=== PATIENT | female | born 1965 | race Caucasian/White ===

== ENCOUNTER 2019-09-08 14:57 | Inpatient (IN) ==
[2019-09-08 15:38] LABS: Basophils # (auto) 0.03 K/uL (0-0.2); Basophils % (auto) 0.2 %; Eosinophils # (auto) 0.04 K/uL (0-0.5); Eosinophils % (auto) 0.2 %; Hematocrit (blood only) 46.9 % (37-47); Hemoglobin 15.9 g/dL (12.0-16.0); Immature Granulocytes # (auto) 0.05 K/uL (0.00-0.02); Immature Granulocytes % (auto) 0.3 %; Lymphocytes # (auto) 2.19 K/uL (1.2-3.4); Lymphocytes % (auto) 13.4 %; Mean Corpuscular Hemoglobin 29.6 pg (25-34); Mean Corpuscular Hgb Conc 33.9 g/dL (32-36); Mean Corpuscular Volume 87.3 fL (80-100); Mean Platelet Volume 9.2 fL (7.4-10.4); Monocytes # (auto) 0.79 K/uL (0.11-0.59); Monocytes % (auto) 4.8 %; Neutrophils # (auto) 13.21 K/uL (1.4-6.5); Neutrophils % (auto) 81.1 %; Platelet Count 377 K/uL (130-400); RDW Coefficient of Variation 15.4 % (11.5-14.5); RDW Standard Deviation 49.3 fL (36.4-46.3); Red Blood Count 5.37 M/uL (4.2-5.4); White Blood Count 16.31 K/uL (4.8-10.8)
[2019-09-08 15:49] LABS: Partial Thromboplastin Time 26.2 Seconds (21.0-31.0); Prothrombin Time 10.5 Seconds (9.0-12.0)
[2019-09-08 15:55] LABS: Alanine Aminotransferase 17 U/L (12-78); Albumin Level 3.5 gm/dl (3.4-5.0); Aspartate Aminotransferase 10 U/L (15-37); BUN Creatinine Ratio 6.8 (10-20); Blood Urea Nitrogen 6 mg/dl (7-18); Calcium 9.6 mg/dl (8.5-10.1); Carbon Dioxide 21 mmol/L (21-32); Chloride 108 mmol/L (98-107); Creatinine Clr Calc Pharmacy 86.6 ml/min; Est GFR (African American) 85.2; Est GFR (Non-African American) 73.5; Glucose 101 mg/dl (70-99); Potassium 3.7 mmol/L (3.5-5.1); Sodium 137 mmol/L (136-145)
[2019-09-08 15:59] LABS: Albumin Globulin Ratio 0.6 (0.9-2); Alkaline Phosphatase 151 U/L (45-117); Bilirubin,Total 0.2 mg/dl (0.2-1); Globulin 5.4 gm/dl (2.5-4.0); Total Protein 8.9 gm/dl (6.4-8.2); Troponin I < 0.015 ng/ml (0-0.045)
[2019-09-08] MEDS ORDERED: OPTIRAY 320 125ml IV PRN (16:22)
[2019-09-08 16:32] LABS: Magnesium 1.8 mg/dl (1.8-2.4)
--- NOTE | 2019-09-08 16:34 | Emergency Department Note ---
History of Present Illness General Chief complaint: Cardiac Assessment Stated complaint: DIZZY Time Seen by Provider: 09/08/19 16:03 Source: patient Mode of arrival: ambulatory Limitations: no limitations History of Present Illness Provider complaint: Headache and chest pain Onset (ago): year(s) (Intermittent and sporadic for 3 years worsening over the test 2 weeks occurring 3-4 times a day) 3 Location: head (Right side) and chest (Left upper chest and left arm) Radiation: extremity (Left arm) Severity: moderate Pain Consistency: + intermittent Maximum Pain Intensity: 2 Quality: + sharp Relieved By: + other (Meclizine) Exacerbated By: + movement Associated symptoms: + nausea/vomiting, + shortness of breath (Chronic from COPD not worsening) and + other (Numbness to the tongue and lips with double vision); no fever/chills and no weakness Treatments prior to arrival: other (Meclizine) This is a 54-year-old female presents with a headache and chest pain. The patient states that for the past 3 years she has had intermittent and sporadic episodes where she will develop a right-sided headache which will give her double vision and numbness to the tongue and lips. She then developed sharp pain in her left upper chest rating down her left arm. The pain is described as sharp. It is also associated with vertigo and she was prescribed Antivert for the vertigo by her PCP. She has never had any imaging studies of her head. Over the past 2 weeks her symptoms have become more frequent and she has about 3-4 episodes a day. She was seen by her PCP today and sent here for evaluation due to her tachycardia and symptoms. She does have a family history of CAD. Her brother of a heart attack at age 42. She states that her mother had extensive heart problems. She currently smokes although she is trying to quit. She does have COPD and has chronic shortness of breath which has not worsened recently. She denies any leg swelling or pain. She has no history of PE or DVT. She did take a meclizine at 9 AM this morning. She denies any difficulty walking or swallowing. She is does state that when her tongue is numb she feels like she has trouble articulating. She has no trouble finding words or understanding. Home Medications Home Medications Medication Instructions Recorded Confirmed Type Victoza 2-Sonny 0.6 mg SUBCUT QAM 03/21/19 09/08/19 History dicyclomine 20 mg PO QID PRN 03/21/19 09/08/19 History duloxetine [Cymbalta] 60 mg PO QAM 03/21/19 09/08/19 History ezetimibe 10 mg PO QAM 03/21/19 09/08/19 History levothyroxine 75 mcg PO QAM 03/21/19 09/08/19 History magnesium oxide 400 mg PO HS 03/21/19 09/08/19 History metformin 1,000 mg PO BID 03/21/19 09/08/19 History omeprazole 40 mg PO BID 03/21/19 09/08/19 History topiramate 25 mg PO TID 03/21/19 09/08/19 History albuterol sulfate 2 puff INHALATION Q4H PRN 09/08/19 09/08/19 History ammonium lactate 1 applic TOPICAL BID 09/08/19 09/08/19 History glycopyrrolate-formoterol [Bevespi 2 puff INHALATION BID 09/08/19 09/08/19 History Aerosphere] meclizine 25 mg PO TID PRN 09/08/19 09/08/19 History Allergies Allergy/AdvReac Type Severity Reaction Status Date / Time No Known Allergies Allergy Unknown Verified 07/01/19 15:34 Past Med/Surg History Medical History Anxiety Chronic back pain COPD (chronic obstructive pulmonary disease) Depression Diabetes mellitus, type 2 niddm Essential tremor takes topamax daily Fibromyalgia Hyperlipidemia Hyperlipidemia Hypothyroidism Kidney stones Migraine cluster migraines Osteoarthritis Post traumatic stress disorder Rupture of kidney right kidney (~). no surgical intervention. currently working normal. Surgical History History of appendectomy History of arthroscopy of left shoulder (~05/2019) History of cholecystectomy History of colonoscopy History of cystoscopy with stents History of esophagogastroduodenoscopy (EGD) History of laparoscopy S/P BRANDIE-BSO Family History (Updated 09/08/19 @ 16:49 by Shawn Young MD) Uncle Family history of diabetes mellitus Grandmother (Paternal) Family history of diabetes mellitus Brother Heart disease Mother Heart disease Social History Preferred Language: Lao Communication Ability: Effective Machine Wiper Required: No Beliefs That Will Affect Care: None Current Living Situation: Alone Other Information That Helps Us Care for You: No Feels Safe at Home: Yes Safety Concerns: Feels Safe At This Time Smoking Status: Current every day smoker Tobacco Type: cigarettes ; Cigarettes Per Day: 5 ; Do You Dip or Chew Tobacco: No ; Second Hand Exposure: No ; Tobacco Cessation Education Requested by Patient: Yes Hx Alcohol Use: No Hx Substance Use: No Review of Systems See HPI for pertinent positives & negatives. and A total of 10 systems reviewed and were otherwise negative Physical Exam Vital Signs Vital Signs - 24 hr 09/08/19 15:13 09/08/19 16:41 09/08/19 16:43 Temperature 36.4 C L Temperature Source Oral Pulse Rate 100 H 99 H Pulse Rate [Right Finger] 94 H Pulse Rate from SpO2 Sensor 98 H Respiratory Rate 16 20 Respiratory Effort / Characteristics Non-Labored Non-Labored Spontaneous Respiratory Depth Normal Normal Respiratory Pattern Regular Blood Pressure 138/89 156/95 H Blood Pressure [Left Arm] 156/95 H Blood Pressure Mean 105 118 Blood Pressure Mean [Left Arm] 115 Blood Pressure Position [Left Arm] Lying Pulse Oximetry 96 94 95 Oxygen Delivery Method Room Air Sepsis Recent Fever Within 48 Hours No Sepsis New/Unexplained Change in Mental Status No Sepsis Action Taken by Nursing No Action Required 09/08/19 16:45 09/08/19 16:50 09/08/19 17:00 Temperature Temperature Source Pulse Rate 96 H 94 H 97 H Pulse Rate [Right Finger] 92 H Pulse Rate from SpO2 Sensor 95 H 95 H 96 H Respiratory Rate 20 Respiratory Effort / Characteristics Non-Labored Spontaneous Respiratory Depth Normal Respiratory Pattern Regular Blood Pressure 155/92 H Blood Pressure [Left Arm] 130/82 Blood Pressure Mean 108 Blood Pressure Mean [Left Arm] 98 Blood Pressure Position [Left Arm] Lying Pulse Oximetry 95 96 95 Oxygen Delivery Method Room Air Sepsis Recent Fever Within 48 Hours Sepsis New/Unexplained Change in Mental Status Sepsis Action Taken by Nursing 09/08/19 17:01 Temperature Temperature Source Pulse Rate 93 H Pulse Rate [Right Finger] Pulse Rate from SpO2 Sensor 94 H Respiratory Rate Respiratory Effort / Characteristics Respiratory Depth Respiratory Pattern Blood Pressure 207/117 H Blood Pressure [Left Arm] Blood Pressure Mean 158 Blood Pressure Mean [Left Arm] Blood Pressure Position [Left Arm] Pulse Oximetry 96 Oxygen Delivery Method Sepsis Recent Fever Within 48 Hours Sepsis New/Unexplained Change in Mental Status Sepsis Action Taken by Nursing Constitutional: Vital signs reviewed. Eyes: Pupils are equal round reactive to light. Conjunctiva are noninjected. ENT: Pharynx is clear without erythema or exudate. Mucous membranes are moist. Neck supple without meningeal signs. Respiratory: Clear to auscultation bilaterally. Breath sounds are equal bilaterally. Cardiovascular: Tachycardic. Heart rate 111.. No rubs or gallops. GI: Soft, nondistended and nontender. Bowel sounds are present. Musculoskeletal: No peripheral edema. No lower extremity tenderness. Integumentary: No cyanosis. or jaundice. Neurologic: The patient is awake and alert. Cranial nerves II-XII are intact. Motor is 5 out of 5 on the right side. Motor strength is 4/5 on the left upper and lower extremity. Sensation is intact to light touch all extremities. Normal speech. Left pronator drift. Slight ataxia in the left upper and lower extremity. Psychiatric: Normal affect. Not anxious appearing. Course Consultations Consultation #1: Dr. Ley stroke neurologist from [facility]. The patient is not a IV TPA candidate as the last known well is not firmly esta blished. Time: 16:30 Consultation #2: Dr. Ley stroke neurologist from [facility]. Discussed CT angiogram results. No acute intervention recommended maximizing platelet therapy with aspirin and Plavix. Time: 16:57 Administered Medications Acetaminophen (Tylenol) 650 mg PO Q4H PRN PRN Reason: Pain or Fever Stop: 10/08/19 18:59 Last Admin: 09/08/19 19:39 Dose: 650 mg Documented by: [id number] Enoxaparin Sodium (Lovenox) 40 mg SQ HS TRISH Stop: 10/08/19 20:59 Last Admin: 09/08/19 21:03 Dose: 40 mg Documented by: [id number] Ibuprofen (Motrin) 600 mg PO QID PRN PRN Reason: pain or headache Stop: 10/08/19 20:27 Last Admin: 09/08/19 21:04 Dose: 600 mg Documented by: [id number] Insulin Aspart (Novolog Flexpen) 0 units SC ACHS TRISH Stop: 10/08/19 20:59 Last Admin: 09/08/19 21:19 Dose: Not Given Documented by: [id number] Cosigned by: [id number] Insulin Glargine (Lantus Solostar Pen) 0 units SC BID [facility]; Protocol Stop: 10/08/19 20:59 Last Admin: 09/08/19 21:19 Dose: Not Given Documented by: [id number] Ioversol (Optiray 320 125ml) 119 ml IV ONCE PRN PRN Reason: Interaction Checking Stop: 09/12/19 16:21 Last Admin: 09/08/19 16:22 Dose: 119 ml Documented by: [id number] Magnesium Oxide (Mag-Ox) 400 mg PO HS TRISH Stop: 10/08/19 20:59 Last Admin: 09/08/19 21:04 Dose: 400 mg Documented by: [id number] Miscellaneous (Order Awaiting Action) 1 ea N/A QS [facility] Stop: 10/08/19 20:44 Last Admin: 09/08/19 21:03 Dose: 1 ea Documented by: [id number] Pantoprazole Sodium (Protonix) 40 mg PO BID TRISH Stop: 10/08/19 20:59 Last Admin: 09/08/19 21:04 Dose: 40 mg Documented by: [id number] Topiramate (Topamax) 25 mg PO TID TRISH Stop: 10/08/19 20:59 Last Admin: 09/08/19 21:04 Dose: 25 mg Documented by: [id number] Discontinued Medications Aspirin (Aspirin) 324 mg PO NOW STA Stop: 09/08/19 17:03 Last Admin: 09/08/19 17:22 Dose: 324 mg Documented by: [id number] Clopidogrel Bisulfate (Plavix) 300 mg PO NOW STA Stop: 09/08/19 17:03 Last Admin: 09/08/19 17:22 Dose: 300 mg Documented by: [id number] Meclizine HCl (Antivert) 25 mg PO NOW STA Stop: 09/08/19 16:36 Last Admin: 09/08/19 16:46 Dose: 25 mg Documented by: [id number] Critical Care Time Critical Care Time: Yes Total Critical Care Time: 35 I have personally spent 35 minutes of critical care time in the direct management of this patient. This includes bedside care, interpretation of diagnostic studies, and testing, discussion with consultants, patient, and family members, and other required patient management activities. These minutes are in excess of all separately billable procedures. Medical Decision Making Differential Diagnosis CVA, TIA, vertebrobasilar insufficiency, ICH, aortic dissection, PE, unstable angina, [place] Medical Records Attestation: I reviewed the patient's medical records. I did perform a limited focused review of portions of the patient's old chart on the electronic medical record. The patient has had no recent pertinent visits to this hospital. Home Medications Current Medication List: was personally reviewed by me Laboratory Data Attestation: I reviewed the patient's lab results. Result diagrams: 09/08/19 15:20 09/08/19 15:20 Lab Results 09/08/19 09/08/19 09/08/19 Range/Units 15:20 15:20 15:20 WBC 16.31 H (4.8-10.8) K/uL RBC 5.37 (4.2-5.4) M/uL Hgb 15.9 (12.0-16.0) g/dL Hct 46.9 (37-47) % MCV 87.3 (80-100) fL MCH 29.6 (25-34) pg MCHC 33.9 (32-36) g/dL RDW Std Deviation 49.3 H (36.4-46.3) fL RDW Coeff of Stalin 15.4 H (11.5-14.5) % Plt Count 377 (130-400) K/uL MPV 9.2 (7.4-10.4) fL Immature Gran % (Auto) 0.3 % Neut % (Auto) 81.1 % Lymph % (Auto) 13.4 % [place] % (Auto) 4.8 % Eos % (Auto) 0.2 % Baso % (Auto) 0.2 % Immature Gran # (Auto) 0.05 H (0.00-0.02) K/uL Neut # (Auto) 13.21 H (1.4-6.5) K/uL Lymph # (Auto) 2.19 (1.2-3.4) K/uL [place] # (Auto) 0.79 H (0.11-0.59) K/uL Eos # (Auto) 0.04 (0-0.5) K/uL Baso # (Auto) 0.03 (0-0.2) K/uL PT 10.5 (9.0-12.0) Seconds INR 1.0 (0.9-1.1) APTT 26.2 (21.0-31.0) Seconds PTT Ratio 1.0 Sodium 137 (136-145) mmol/L Potassium 3.7 (3.5-5.1) mmol/L Chloride 108 H (98-107) mmol/L Carbon Dioxide 21 (21-32) mmol/L Anion Gap 8.0 (3-11) BUN 6 L (7-18) mg/dl Creatinine 0.89 (0.6-1.2) mg/dl Est Cr Clr Drug Dosing 86.6 ml/min Est GFR ( Amer) 85.2 Est GFR (Non-Af Amer) 73.5 BUN/Creatinine Ratio 6.8 L (10-20) Glucose 101 H (70-99) mg/dl Calcium 9.6 (8.5-10.1) mg/dl Magnesium 1.8 (1.8-2.4) mg/dl Total Bilirubin 0.2 (0.2-1) mg/dl AST 10 L (15-37) U/L ALT 17 (12-78) U/L Alkaline Phosphatase 151 H (45-117) U/L Troponin I < 0.015 (0-0.045) ng/ml Total Protein 8.9 H (6.4-8.2) gm/dl Albumin 3.5 (3.4-5.0) gm/dl Globulin 5.4 H (2.5-4.0) gm/dl Albumin/Globulin Ratio 0.6 L (0.9-2) Blood Type Antibody Screen 09/08/19 Range/Units 16:35 WBC (4.8-10.8) K/uL RBC (4.2-5.4) M/uL Hgb (12.0-16.0) g/dL Hct (37-47) % MCV (80-100) fL MCH (25-34) pg MCHC (32-36) g/dL RDW Std Deviation (36.4-46.3) fL RDW Coeff of Stalin (11.5-14.5) % Plt Count (130-400) K/uL MPV (7.4-10.4) fL Immature Gran % (Auto) % Neut % (Auto) % Lymph % (Auto) % [place] % (Auto) % Eos % (Auto) % Baso % (Auto) % Immature Gran # (Auto) (0.00-0.02) K/uL Neut # (Auto) (1.4-6.5) K/uL Lymph # (Auto) (1.2-3.4) K/uL [place] # (Auto) (0.11-0.59) K/uL Eos # (Auto) (0-0.5) K/uL Baso # (Auto) (0-0.2) K/uL PT (9.0-12.0) Seconds INR (0.9-1.1) APTT (21.0-31.0) Seconds PTT Ratio Sodium (136-145) mmol/L Potassium (3.5-5.1) mmol/L Chloride (98-107) mmol/L Carbon Dioxide (21-32) mmol/L Anion Gap (3-11) BUN (7-18) mg/dl Creatinine (0.6-1.2) mg/dl Est Cr Clr Drug Dosing ml/min Est GFR ( Amer) Est GFR (Non-Af Amer) BUN/Creatinine Ratio (10-20) Glucose (70-99) mg/dl Calcium (8.5-10.1) mg/dl Magnesium (1.8-2.4) mg/dl Total Bilirubin (0.2-1) mg/dl AST (15-37) U/L ALT (12-78) U/L Alkaline Phosphatase (45-117) U/L Troponin I (0-0.045) ng/ml Total Protein (6.4-8.2) gm/dl Albumin (3.4-5.0) gm/dl Globulin (2.5-4.0) gm/dl Albumin/Globulin Ratio (0.9-2) Blood Type B Negative Antibody Screen NEGATIVE ECG Data Attestation: I personally reviewed and interpreted this ECG as follows: Indication: + chest pain Rate (beats per minute): 117 Rhythm: + sinus tachycardia ECG Intervals/blocks: no Prolonged QT ECG [place]: + Normal ECG ST segments: no ST elevation ECG Findings: no PVCs Blood Pressure Blood Pressure Findings: Elevated blood pressure Blood Pressure Disposition: Referred to patients primary care provider MDM Narrative I did evaluate the patient as noted above. The patient is presenting with vertigo which has been daily for the past 2 weeks but has been sporadic for the past 3 years. On my exam, however, the patient has obvious left-sided weakness to her arm and leg. I did call a stroke alert. I immediately spoke to the stroke neurologist from [facility]. She felt the patient was not an IV TPA candidate as the last known well is not firmly established. The patient did not even notice she had weakness until I examined her. I did initially treat her with Antivert p.o. IV access was established. The patient was placed on a continuous registered nurse cardiac telemetry. I did order and personally review the patient's 12-lead EKG as described above. Her twelve-lead EKG demonstrates sinus tachycardia without acute ischemia. I did order and personally reviewed the images of the patient's chest x-ray as described in the EMR. I did order and review the patient's blood work as noted in the electronic medical record. Her white blood cell count is elevated. She denies having any fevers. She is not anemic. Electrolytes are unremarkable other than a chloride of 108. Troponin is negative. I did order a stat CT of the head and CT angiogram of the head and neck. I did review the images myself as well as the radiology report as described in the EMR. CT of the head is negative for acute process. 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 I did reassess the patient several times. Her vertigo improved but she still has persistent neurologic symptoms. I did discuss the CTA results with the [facility] stroke neurologist who recommended maximizing her antiplatelet therapy with aspirin and Plavix. I did treat the patient with aspirin 324 mg p.o. and Plavix 300 mg load. I did discuss the case with the hospitalist and case resource manager. Impression & Plan Stroke-like symptom, Left-sided chest pain, Acute left-sided weakness Discharge Plan Visit Data *Final* Discharge Date/Time: 09/08/19 18:06 Chief Complaint: Cardiac Assessment Stated Complaint: DIZZY ED Provider: Shawn Young Discharge Problem: Stroke-like symptom, Left-sided chest pain, Acute left-sided weakness Patient Disposition: Admitted As Inpatient Discharge Instructions Interventions: ED Discharge Assessment Last Done: 09/08/19 18:06
[2019-09-08] MEDS ORDERED: MECLIZINE HCL 25 MG TAB PO STA (16:35)
--- NOTE | 2019-09-08 16:37 | CT Scan Report ---
CT head/brain wo con CLINICAL HISTORY: Left-sided weakness. Possible stroke. COMPARISON STUDY: No previous studies for comparison. TECHNIQUE: Axial CT of the brain is performed from the vertex to the skull base. IV contrast was not administered for this examination. A dose lowering technique was utilized adhering to the principles of ALARA. CT DOSE: FINDINGS: No intra or extra-axial mass lesions are visualized. There is no CT evidence of acute cortical infarc tion. There is no evidence of midline shift. There is no acute hemorrhage. No calvarial fractures ar e visualized. There are minimal white matter hypodensities likely on a small vessel basis. There is no evidence of pathologic ventricular dilatation. There is no evidence of acute sinusitis IMPRESSION: No acute intracranial findings ACT 112: Negative or not required by law. Electronically signed by: Nahid Pearl M.D. 09/08/2019 4:35 PM
--- NOTE | 2019-09-08 16:42 | CT Scan Report ---
CT angio head w con CLINICAL HISTORY: left sided weakness eval for stroke TECHNIQUE: CT angiography of the head was performed in a dynamic helical fashion during intravenous a dministration of 119 cc of Optiray 320. MIP imaging was performed. A dose lowering technique was util ized adhering to the principles of ALARA. CT DOSE: 1628.86 mGy.cm COMPARISON STUDY: Noncontrast study dated 09/08/2019 FINDINGS: There are no lesion suspicious for aneurysm. There are no major intracranial branch occlusi ons. The dural venous sinuses appear patent. 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 IMPRESSION: 1. 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 No evidence of aneurysm 3. No evidence of major intracranial branch occlusion or stenosis. ACT 112: Negative or not required by law. Electronically signed by: Nahid Pearl M.D. 09/08/2019 4:41 PM
--- NOTE | 2019-09-08 16:45 | CT Scan Report ---
CT ANGIOGRAPHY OF THE NECK WITH CONTRAST CLINICAL HISTORY: Left-sided weakness. Evaluate for stroke. COMPARISON STUDY: No previous studies for comparison. Technique: CT angiography of the carotid and vertebral arteries was obtained using [employer]et[employer] 320 IV and 3D reconstruction on an independent workstation. NASCET criteria was utilized. Automated exposure c ontrol was utilized for the study. A dose lowering technique was utilized adhering to the principles of ALARA. Findings: Please note that the chest and head CTAs will be reported separately. No flow is identified within the proximal left vertebral artery. Distal reconstitution is noted with flow first noted at t he C6 level. Left vertebral artery is diminutive. The right vertebral artery is dominant. There is no stenosis within the bilateral common carotid or cervical internal carotid arteries. There is mild ul cerated atherosclerotic plaque within the proximal bilateral internal carotid arteries. There is no d issection within the major vessels of the neck. There is no cervical lymphadenopathy. There is no cer vical spine fracture. IMPRESSION: 1. Mild atherosclerotic ulcerated plaque within the proximal bilateral internal carotid arteries. No stenosis within these vessels. 2. No flow identified within the proximal left vertebral artery with distal reconstitution beginning at the C6 level. This finding is age-indeterminate but probably chronic. ACT 112: Negative or not required by law. Electronically signed by: Elier Michael M.D. 09/08/2019 4:43 PM
--- NOTE | 2019-09-08 16:47 | XRay Report ---
XR chest 1V portable CLINICAL HISTORY: Chest Pain COMPARISON STUDY: Chest radiograph March 21, 2019. FINDINGS: Lung volumes are at the lower limits of normal. There is no pneumothorax or pleural effusio n. There is no evidence for pulmonary edema. There is slight interstitial prominence. Cardiomediastin al silhouette is unremarkable. IMPRESSION: No acute cardiopulmonary findings. ACT 112: Negative or not required by law. Electronically signed by: Elier Michael M.D. 09/08/2019 4:45 PM
--- NOTE | 2019-09-08 16:51 | CT Scan Report ---
CT ANGIOGRAM OF THE CHEST CLINICAL HISTORY: Atypical chest pain. Possible stroke. COMPARISON STUDY: Chest x-ray dated 03/21/2019 TECHNIQUE: Following the IV administration of 119 mL of Optiray-320, CT angiogram of the thorax was p erformed from the thoracic inlet to the lung bases utilizing the pulmonary embolus protocol. Images a re reviewed in the axial, sagittal, and coronal planes. IV contrast was administered without complica tion. MIP imaging was performed. A dose lowering technique was utilized adhering to the principles o f ALARA. CT DOSE: FINDINGS: There are several left lobe hepatic hypodensities measuring up to 2.5 cm in diameter. Although likely representing cysts, the slightly exceeds water attenuation. There is a lower right paratracheal lymph node the upper limits of normal in size. There is no pathol ogic adenopathy by size criteria. There was no evidence of thoracic aortic dilatation. There were no pulmonary artery filling defects to indicate acute pulmonary embolism. No pleural effusions are visualized. There is dependent atelectasis. There is a 7 mm solid lingular nodule. This is of relatively low susp icion and may represent focal atelectasis. There is pulmonary emphysema. IMPRESSION: 1. No evidence of acute pulmonary embolism 2. Emphysema 3. No evidence of pneumonia 4. 7 mm solid lingular nodule. A 6-12 month follow-up CT scan is recommended. Please refer to below summary of Fleischner criteria recommendations for follow-up of incidental CT n odules (Lita Hansen, Guidelines for management of small pulmonary nodules detected on CT scans: A sta tement from the Fleischner Society, Radiology 237: [id number].) SOLID NODULES Solitary nodule size: <6 mm * low risk patients: no follow-up needed * high risk patients: optional CT at 12 months Solitary nodule size: 6-8 mm * low risk patients: follow-up at 6-12 months, then consider further follow-up at 18-24 months * high risk patients: initial follow-up CT at 6-12 months and then at 18-24 months if no change Solitary nodule size: >8 mm * either low or high risk patients - consider follow-up CT at 3 months, and/or CT-PET, and/or biopsy Multiple nodules size: <6 mm * low risk patients: no routine follow-up * high risk patients: optional CT at 12 months Multiple nodules size: 6-8 mm * low risk patients: follow-up at 3-6 months, then consider further follow-up at 18-24 months * high risk patients: follow-up at 3-6 months, then at 18-24 months if no change Multiple nodules size: >8 mm * low risk patients: follow-up at 3-6 months, then consider further follow-up at 18-24 months * high risk patients: follow-up at 3-6 months, then at 18-24 months if no change Note: newly detected indeterminate nodule in persons 35 years of age or older. * low risk patients: minimal or absent history of smoking and/or other known risk factors * high risk patients: history of smoking or of other known risk factors (e.g. first degree relative with lung cancer, or exposure to asbestos, radon, uranium) * if a nodule up to 8 mm is partly solid or is ground glass further follow-up is required after 24 m onths to exclude possible slow growing adenocarcinoma (WILLIAM) SUBSOLID NODULES Solitary pure ground-glass nodule * nodule size <6 mm - no CT follow-up required * nodule size >=6 mm - follow-up CT at 6-12 months, then every 2 years until 5 years Solitary part-solid nodule * nodule size <6 mm - no CT follow-up required * nodule size >=6 mm - follow-up CT at 3-6 months. If unchanged, and solid component remains <6 mm, then annual follow-up for 5 years Multiple subsolid nodules * nodule size <6 mm - follow-up CT at 3-6 months, consider further follow-up at 2 and 4 years if sta ble * nodule size >=6 mm - follow-up CT at 3-6 months, subsequent management based on the most suspiciou s nodule(s) ACT 112: Negative or not required by law. Electronically signed by: Nahid Pearl M.D. 09/08/2019 4:49 PM
[2019-09-08] MEDS ORDERED: CLOPIDOGREL BISULFATE 300 MG TAB PO STA (17:02)
[2019-09-08] MEDS ORDERED: ASPIRIN CHEW 324 MG PO STA (17:02)
--- NOTE | 2019-09-08 18:21 | History & Physical Report ---
Date of Service September 08, 2019 Assessment & Plan (1) Stroke-like symptom: Right-sided headaches associated with diplopia, dizziness, paresthesiae as described in HPI. No hemorrhage or other acute findings on CT of head. CTA head and neck findings as noted. Neurology consultation via telemedicine with [facility] obtained in ED. Thrombolytic therapy was not recommended because of patient's symptoms and findings. Check MRI brain. Check echo. Antiplatelet therapy with aspirin and clopidogrel. Check lipid profile. Smoking cessation counseling. PT/OT/LOOM SETTER evaluations. Consult Neurology. (2) Pulmonary nodule: 7 mm lingular nodule incidentally noted on CT of chest. Patient is a smoker. Follow-up CT in 6 to 12 months recommended. (3) COPD (chronic obstructive pulmonary disease): Pulmonary status stable. Continue usual inhalers. (4) Diabetes mellitus, type 2: Usually managed with metformin and Victoza. Check hemoglobin A1c. Managed with Lantus/NovoLog during hospital stay. (5) Hypothyroidism: Check TSH. Continue levothyroxine. (6) Essential tremor: Continue topiramate. (7) DVT prophylaxis: SQ enoxaparin. Ambulate. (8) Discharge planning issues: Anticipated discharge to home. Family Medicine follow-up with Dr. Matson. History of Present Illness Chief Complaint: headache, double vision, dizziness Primary Care Provider: Kavin Matson MD 54-year-old female followed by Dr. Matson. History of COPD, diabetes mellitus type 2, cluster headaches, tremor. Experiencing severe right-sided headaches intermittently over the last 2 weeks. Symptoms are different than her cluster headaches. Headaches located in the right parietal region and described as sharp/stabbing. They last for 5- 30 minutes at a time, 4 5 times per day. Headaches associated with dizziness, diplopia, paresthesiae of tongue and lips. Meclizine helps with the dizziness, but not with the other symptoms. Also notes some left-sided weakness. No difficulty ambulating. Patient came to the ED for evaluation. Stroke alert with neurology telemedicine consultation with [facility] obtained. It was felt that TPA not indicated given the nature of the patient's symptoms. Antiplatelet therapy was recommended and patient received aspirin and clopidogrel in the ED. Allergies Allergy/AdvReac Type Severity Reaction Status Date / Time No Known Allergies Allergy Unknown Verified 07/01/19 15:34 Home Medications Home Medications Medication Instructions Recorded Confirmed Type Victoza 2-Sonny 0.6 mg SUBCUT QAM 03/21/19 09/08/19 History dicyclomine 20 mg PO QID PRN 03/21/19 09/08/19 History duloxetine [Cymbalta] 60 mg PO QAM 03/21/19 09/08/19 History ezetimibe 10 mg PO QAM 03/21/19 09/08/19 History levothyroxine 75 mcg PO QAM 03/21/19 09/08/19 History magnesium oxide 400 mg PO HS 03/21/19 09/08/19 History metformin 1,000 mg PO BID 03/21/19 09/08/19 History omeprazole 40 mg PO BID 03/21/19 09/08/19 History topiramate 25 mg PO TID 03/21/19 09/08/19 History albuterol sulfate 2 puff INHALATION Q4H PRN 09/08/19 09/08/19 History ammonium lactate 1 applic TOPICAL BID 09/08/19 09/08/19 History glycopyrrolate-formoterol [Bevespi 2 puff INHALATION BID 09/08/19 09/08/19 History Aerosphere] meclizine 25 mg PO TID PRN 09/08/19 09/08/19 History Past Med/Surg History Medical History Anxiety Chronic back pain COPD (chronic obstructive pulmonary disease) Depression Diabetes mellitus, type 2 niddm Essential tremor takes topamax daily Fibromyalgia Hyperlipidemia Hyperlipidemia Hypothyroidism Kidney stones Migraine cluster migraines Osteoarthritis Post traumatic stress disorder Rupture of kidney right kidney (~). no surgical intervention. currently working normal. Surgical History History of appendectomy History of arthroscopy of left shoulder (~05/2019) History of cholecystectomy History of colonoscopy History of cystoscopy with stents History of esophagogastroduodenoscopy (EGD) History of laparoscopy S/P BRANDIE-BSO Family History Uncle Family history of diabetes mellitus Grandmother (Paternal) Family history of diabetes mellitus Brother Heart disease Mother Heart disease Social History Preferred Language: Mauritanian Communication Ability: Effective Pick Up Truck Driver Required: No Beliefs That Will Affect Care: None Current Living Situation: Alone Other Information That Helps Us Care for You: No Feels Safe at Home: Yes Safety Concerns: Feels Safe At This Time Smoking Status: Current every day smoker Tobacco Type: cigarettes ; Cigarettes Per Day: 5 ; Do You Dip or Chew Tobacco: No ; Second Hand Exposure: No ; Tobacco Cessation Education Requested by Patient: Yes Hx Alcohol Use: No Hx Substance Use: No Review of Systems Constitutional: + weight loss; no fever Eyes: as per Subjective / HPI Ear, Nose, Mouth, Throat: no nasal congestion, no sinus pain/pressure and no sore throat Respiratory: + dyspnea on exertion (chronic, unchanged) Cardiovascular: no chest pain, no palpitations and no edema Gastrointestinal: + nausea and + diarrhea/loose stools (chronic); no vomiting, no constipation, no blood in stools and no melena Genitourinary: no dysuria and no hematuria Musculoskeletal: no joint pain and no myalgia (fibromyalgia) Integumentary: no rash and no new lesions Neurologic: as per Subjective / HPI Endocrine: no polydipsia and no polyuria Hematologic / Lymphatic: + easy bruising; no easy bleeding and no lymphadenopathy Results & Data Vital Signs (Past 12 Hours) Vital Signs Temp Pulse Pulse Resp BP BP Pulse Ox 09/08/19 18:01 100 H 21 95 09/08/19 18:00 96 H 19 153/79 H 95 09/08/19 17:50 92 H 25 H 96 09/08/19 17:40 92 H 14 95 09/08/19 17:31 99 H 23 95 09/08/19 17:30 95 H 22 131/97 96 09/08/19 17:20 91 H 18 96 09/08/19 17:19 92 H 21 130/82 96 09/08/19 17:10 95 H 97 09/08/19 17:01 93 H 207/117 H 96 09/08/19 17:00 97 H 92 H 20 130/82 95 09/08/19 16:50 94 H 96 09/08/19 16:45 96 H 155/92 H 95 09/08/19 16:43 99 H 156/95 H 95 09/08/19 16:41 94 H 20 156/95 H 94 09/08/19 15:13 36.4 C L 100 H 16 138/89 96 Laboratory Results Laboratory Results - last 24 hr 09/08/19 09/08/19 09/08/19 15:20 15:20 15:20 WBC 16.31 H RBC 5.37 Hgb 15.9 Hct 46.9 MCV 87.3 MCH 29.6 MCHC 33.9 RDW Std Deviation 49.3 H RDW Coeff of Stalin 15.4 H Plt Count 377 MPV 9.2 Immature Gran % (Auto) 0.3 Neut % (Auto) 81.1 Lymph % (Auto) 13.4 [place] % (Auto) 4.8 Eos % (Auto) 0.2 Baso % (Auto) 0.2 Immature Gran # (Auto) 0.05 H Neut # (Auto) 13.21 H Lymph # (Auto) 2.19 [place] # (Auto) 0.79 H Eos # (Auto) 0.04 Baso # (Auto) 0.03 PT 10.5 INR 1.0 APTT 26.2 PTT Ratio 1.0 Sodium 137 Potassium 3.7 Chloride 108 H Carbon Dioxide 21 Anion Gap 8.0 BUN 6 L Creatinine 0.89 Est Cr Clr Drug Dosing 86.6 Est GFR ( Amer) 85.2 Est GFR (Non-Af Amer) 73.5 BUN/Creatinine Ratio 6.8 L Glucose 101 H POC Glucose Calcium 9.6 Magnesium 1.8 Total Bilirubin 0.2 AST 10 L ALT 17 Alkaline Phosphatase 151 H Troponin I < 0.015 Total Protein 8.9 H Albumin 3.5 Globulin 5.4 H Albumin/Globulin Ratio 0.6 L Blood Type Antibody Screen 09/08/19 09/08/19 16:35 18:57 WBC RBC Hgb Hct MCV MCH MCHC RDW Std Deviation RDW Coeff of Stalin Plt Count MPV Immature Gran % (Auto) Neut % (Auto) Lymph % (Auto) [place] % (Auto) Eos % (Auto) Baso % (Auto) Immature Gran # (Auto) Neut # (Auto) Lymph # (Auto) [place] # (Auto) Eos # (Auto) Baso # (Auto) PT INR APTT PTT Ratio Sodium Potassium Chloride Carbon Dioxide Anion Gap BUN Creatinine Est Cr Clr Drug Dosing Est GFR ( Amer) Est GFR (Non-Af Amer) BUN/Creatinine Ratio Glucose POC Glucose 115 H Calcium Magnesium Total Bilirubin AST ALT Alkaline Phosphatase Troponin I Total Protein Albumin Globulin Albumin/Globulin Ratio Blood Type B Negative Antibody Screen NEGATIVE Diagnostic Findings PORTABLE CHEST X-RAY FINDINGS: Lung volumes are at the lower limits of normal. There is no pneumothorax or pleural effusion. There is no evidence for pulmonary edema. There is slight interstitial prominence. Cardiomediastinal silhouette is unremarkable. IMPRESSION: No acute cardiopulmonary findings. ACT 112: Negative or not required by law. Electronically signed by: Elier Michael M.D. 09/08/2019 4:[address] HEAD FINDINGS: No intra or extra-axial mass lesions are visualized. There is no CT evidence of acute cortical infarction. There is no evidence of midline shift. There is no acute hemorrhage. No calvarial fractures are visualized. There are minimal white matter hypodensities likely on a small vessel basis. There is no evidence of pathologic ventricular dilatation. There is no evidence of acute sinusitis IMPRESSION: No acute intracranial findings ACT 112: Negative or not required by law. Electronically signed by: Nahid Pearl M.D. 09/08/2019 4:35 PM CTA HEAD FINDINGS: There are no lesion suspicious for aneurysm. There are no major intracranial branch occlusions. The dural venous sinuses appear patent. 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 IMPRESSION: 1. Prominent transcortical vein within the left frontal lobe, likely representing a developmental venous anomaly 2. No evidence of aneurysm 3. No evidence of major intracranial branch occlusion or stenosis. ACT 112: Negative or not required by law. Electronically signed by: Nahid Pearl M.D. 09/08/2019 4:41 PM CTA NECK Findings: Please note that the chest and head CTAs will be reported separately. No flow is identified within the proximal left vertebral artery. Distal reconstitution is noted with flow first noted at the C6 level. Left vertebral artery is diminutive. The right vertebral artery is dominant. There is no stenosis within the bilateral common carotid or cervical internal carotid arteries. There is mild ulcerated atherosclerotic plaque within the proximal bilateral internal carotid arteries. There is no dissection within the major vessels of the neck. There is no cervical lymphadenopathy. There is no cervical spine fracture. IMPRESSION: 1. Mild atherosclerotic ulcerated plaque within the proximal bilateral internal carotid arteries. No stenosis within these vessels. 2. No flow identified within the proximal left vertebral artery with distal reconstitution beginning at the C6 level. This finding is age-indeterminate but probably chronic. ACT 112: Negative or not required by law. Electronically signed by: Elier Michael M.D. 09/08/2019 4:43 PM CTA CHEST FINDINGS: There are several left lobe hepatic hypodensities measuring up to 2.5 cm in diameter. Although likely representing cysts, the slightly exceeds water attenuation. There is a lower right paratracheal lymph node the upper limits of normal in size. There is no pathologic adenopathy by size criteria. There was no evidence of thoracic aortic dilatation. There were no pulmonary artery filling defects to indicate acute pulmonary embolism. No pleural effusions are visualized. There is dependent atelectasis. There is a 7 mm solid lingular nodule. This is of relatively low suspicion and may represent focal atelectasis. There is pulmonary emphysema. IMPRESSION: 1. No evidence of acute pulmonary embolism 2. Emphysema 3. No evidence of pneumonia 4. 7 mm solid lingular nodule. A 6-12 month follow-up CT scan is recommended. Please refer to below summary of Fleischner criteria recommendations for follow- up of incidental CT nodules (Lita Hansen, Guidelines for management of small pulmonary nodules detected on CT scans: A statement from the Fleischner Society, Radiology 237: [phone].) ACT 112: Negative or not required by law. Electronically signed by: Nahid Pearl M.D. 09/08/2019 4:49 PM ECG Additional Comments: EKG performed at [address] at 120 / min, no acute changes. Code Status & VTE Plan VTE Prophylaxis Plan VTE Prophylaxis will be ordered: Yes
[2019-09-08] MEDS ORDERED: PHARMACIST DISCHARGE MED REC CONSULT PRN (19:00)
[2019-09-08] MEDS: ACETAMINOPHEN 325 MG TAB PO PRN (19:39)
[2019-09-08] MEDS ORDERED: ALBUTEROL HFA 8 GM INHALER INH PRN (20:23)
[2019-09-08] MEDS ORDERED: DICYCLOMINE HCL 20 MG TAB PO PRN (20:23)
[2019-09-08] MEDS ORDERED: MECLIZINE HCL 25 MG TAB PO PRN (20:35)
[2019-09-08] MEDS ORDERED: DEXTROSE 50% 50 ML SYRINGE IV PRN (20:45)
[2019-09-08] MEDS ORDERED: CARBOHYDRATES FOR HYPOGLYCEMIA PO PRN (20:45)
[2019-09-08] MEDS ORDERED: GLUCAGON FOR INJ 1 MG VIAL IM PRN (20:45)
[2019-09-08] MEDS ORDERED: GLUCOSE 40% GEL 15 GM TUBE PO PRN (20:45)
[2019-09-08] MEDS ORDERED: GLUCOSE 10 TABS/TUBE PO PRN (20:45)
[2019-09-08] MEDS: ENOXAPARIN INJ 40 MG/0.4 ML SYR SQ SCH (21:03)
[2019-09-08] MEDS: PANTOprazole 40 MG TAB PO SCH (21:04)
[2019-09-08] MEDS: TOPIRAMATE 25 MG TAB PO SCH (21:04)
[2019-09-08] MEDS: IBUPROFEN 600 MG TAB PO PRN (21:04)
[2019-09-08] MEDS: MAGNESIUM OXIDE 400 MG TAB PO SCH (21:04)
[2019-09-08] MEDS: INSULIN GLARGINE SOLOSTAR 100 UNITS/ML 3 ML PEN SC SCH (21:19)
[2019-09-08] MEDS: INSULIN ASPART 100 UNITS/ML 3 ML PEN SC SCH (21:19)
[2019-09-09] MEDS: ACETAMINOPHEN 325 MG TAB PO PRN ×2 (01:45→13:43)
[2019-09-09] MEDS: IBUPROFEN 600 MG TAB PO PRN (05:05)
[2019-09-09] MEDS: LEVOTHYROXINE SODIUM 75 MCG TABLET PO SCH (05:06)
[2019-09-09 06:17] LABS: Hematocrit (blood only) 44.3 % (37-47); Hemoglobin 14.5 g/dL (12.0-16.0); Mean Corpuscular Hemoglobin 28.8 pg (25-34); Mean Corpuscular Hgb Conc 32.7 g/dL (32-36); Mean Corpuscular Volume 87.9 fL (80-100); Platelet Count 330 K/uL (130-400); RDW Coefficient of Variation 15.6 % (11.5-14.5); RDW Standard Deviation 49.9 fL (36.4-46.3); Red Blood Count 5.04 M/uL (4.2-5.4); White Blood Count 10.99 K/uL (4.8-10.8)
[2019-09-09 06:34] LABS: Estimated Average Glucose 123 mg/dl; Hemoglobin A1C 5.9 % (4.5-5.6)
--- NOTE | 2019-09-09 06:45 | Magnetic Resonance Report ---
MRI OF THE BRAIN WITHOUT CONTRAST CLINICAL HISTORY: stroke-like symptoms COMPARISON STUDY: Head CT and CTA of the head September 08, 2019. TECHNIQUE: Utilizing a 1.5 Kylie magnet and dedicated coil, multiplanar, multiecho imaging of the bra in was performed without IV contrast. FINDINGS: No foci of restricted diffusion to suggest acute infarct. No acute intracranial hemorrhage, midline shift or mass effect is present. Brain findings normal. Ventricular system is normal. Basila r cisterns are patent. There are no extra-axial collections. Flow-voids for the major intracranial ve ssels are present. No intracranial masses identified on this unenhanced exam. Calvarial signal is nor mal. A few small white matter T2 hyperintense foci could reflect minimal small vessel disease or sequ abdirashid of migraine headaches. IMPRESSION: 1. No acute intracranial findings. 2. Unremarkable unenhanced MRI of the brain. ACT 112: Negative or not required by law. Electronically signed by: Elier Michael M.D. 09/09/2019 6:44 AM
[2019-09-09 06:53] LABS: BUN Creatinine Ratio 10.4 (10-20); Creatinine Clr Calc Pharmacy 91.8 ml/min; Est GFR (African American) 91.3; Est GFR (Non-African American) 78.8; Potassium 3.3 mmol/L (3.5-5.1)
[2019-09-09 07:05] LABS: Thyroid Stimulating Hormone 2.79 uIu/ml (0.300-4.500)
[2019-09-09] MEDS: CLOPIDOGREL BISULFATE 75 MG TAB PO SCH (08:24)
[2019-09-09] MEDS: ASPIRIN 81 MG ECTAB PO SCH (08:24)
[2019-09-09] MEDS: PANTOprazole 40 MG TAB PO SCH ×2 (08:24→20:51)
[2019-09-09] MEDS: DULOXETINE HCL 60 MG CAP PO SCH (08:24)
[2019-09-09] MEDS: TOPIRAMATE 25 MG TAB PO SCH ×3 (08:24→20:51)
[2019-09-09] MEDS: EZETIMIBE 10 MG TABLET PO SCH (08:25)
[2019-09-09] MEDS: INSULIN ASPART 100 UNITS/ML 3 ML PEN SC SCH ×4 (08:29→20:51)
[2019-09-09] MEDS: INSULIN GLARGINE SOLOSTAR 100 UNITS/ML 3 ML PEN SC SCH ×2 (08:30→20:51)
[2019-09-09] MEDS ORDERED: ONDANSETRON INJ 2 MG/ML 2 ML VIAL IV PRN (09:47)
[2019-09-09] MEDS ORDERED: POTASSIUM CHLORIDE 20 MEQ TABCR PO ONE (10:15)
--- NOTE | 2019-09-09 13:51 | Neurology Consultation ---
Date of Consultation September 09, 2019 Assessment & Plan (1) Stroke-like symptom: 1. MRI no acute findings 2. CTA head and neck no significant stenosis 3. TTE- no ASD 4. PT/OT/ speech for discharge needs 5. optimize HTN, HLD, DM LDL <70 6. elevated WBC now normalizing 7. aspirin 81 mg due to cardiac risk factors and family history 8. may have been a complex migraine no evidence of stroke 9. discussed smoking cessation follow up in office as scheduled. (2) Acute left-sided weakness: (3) Essential tremor: 1. continue Topmax 25 mg TID will reassess in outpatient neurology Supervising Physician Co-Signing Physician Notes I have seen and discussed above patient with Dr Cindy Hi, neurology. Pt seen and examined, NOtes including Harrington telestrokes reviewed. Images, lab reviewed. Pt reports hx of rare migraine in past with diplopia and vertigo. Yesterday had a severe R hemicranial headache with vertigo, diplopia, bl perioral tingling and L arm and leg tingling and numbness. L ARm and leg sx have persisted. Pt with mult vasc risk factors and FMH of early cardiovasc disease. MRI brain unremark. CTA prox L vert occlusion with distal reconstitution. echo noncontric. LDL markedly elevated. Exam, awake, alert, no field cut or facial anesthesia or asym. Give-way weakness L arm and L leg with Mccullough's sign, no drift, nml LT, gait not hemiparetic.Modestly severe tremor with intention L>R Imp pbly complicated migraine. Given pt person vasc risk, family hx , left vert occluded agree with some form of antiplt tx. I see Harrington rec dual asa, plavix. I have not objection to that, would do so for 3 weeks then asa 81 mg monotherapy. Smoking cessation, good control bp, glucose, statin with goal ldl <70. I do not think pt needs additional prophylaxis for migraine at present, but if needed could increase topamax. TELMA Hi MD History of Present Illness Reason for Consultation: stroke like symptoms Requesting Physician: Nedra Cage DO Attending Physician: Nedra Cage DO History of Present Illness Santa is a 54 year old female presents with a headache and chest pain. For the past 3 years she has had intermittent and sporadic episodes where she will develop a right-sided headache which will give her double vision and numbness to the tongue and lips. She then developed sharp pain in her left upper chest rating down her left arm. It is also associated with vertigo and she was prescribed Antivert for the vertigo by her PCP. She has never had any imaging studies of her head. Over the past 2 weeks her symptoms have become more frequent and she has about 3-4 episodes a day. Her brother of a heart attack at age 42. She states that her mother had extensive heart problems. She currently smokes although she is trying to quit. She does have COPD and has chronic shortness of breath which has not worsened recently. She did take a meclizine at 9 AM this morning. She is does state that when her tongue is numb she feels like she has trouble articulating. She has no trouble finding words or understanding. She states the headache is still there but is not as bad as previous. She sees [facility] in neurology for her tremor and was given topamax 25 mg TID. On her out patient records this is a mention of complex migraines although she does not say she has migraines. denies CP, SOB, abdominal pain, one sided weakness, numbness tingling, N, V, bowel or bladder issues, +headache, +tremor Allergies Allergy/AdvReac Type Severity Reaction Status Date / Time No Known Allergies Allergy Unknown Verified 07/01/19 15:34 Home Medications Home Medications Medication Instructions Recorded Confirmed Type Victoza 2-Sonny 0.6 mg SUBCUT QAM 03/21/19 09/08/19 History dicyclomine 20 mg PO QID PRN 03/21/19 09/08/19 History duloxetine [Cymbalta] 60 mg PO QAM 03/21/19 09/08/19 History ezetimibe 10 mg PO QAM 03/21/19 09/08/19 History levothyroxine 75 mcg PO QAM 03/21/19 09/08/19 History magnesium oxide 400 mg PO HS 03/21/19 09/08/19 History metformin 1,000 mg PO BID 03/21/19 09/08/19 History omeprazole 40 mg PO BID 03/21/19 09/08/19 History topiramate 25 mg PO TID 03/21/19 09/08/19 History albuterol sulfate 2 puff INHALATION Q4H PRN 09/08/19 09/08/19 History ammonium lactate 1 applic TOPICAL BID 09/08/19 09/08/19 History glycopyrrolate-formoterol [Bevespi 2 puff INHALATION BID 09/08/19 09/08/19 History Aerosphere] meclizine 25 mg PO TID PRN 09/08/19 09/08/19 History Patient History Medical History (Updated 09/09/19 @ 01:08 by Brayden Lujan MD) Adhesive capsulitis of left shoulder Anxiety Chronic back pain COPD (chronic obstructive pulmonary disease) Depression Diabetes mellitus, type 2 niddm Essential tremor takes topamax daily Fibromyalgia Hyperlipidemia Hypothyroidism Kidney stones Migraine cluster migraines Osteoarthritis Post traumatic stress disorder Rupture of kidney right kidney (~s). no surgical intervention. currently working normal. Surgical History (Updated 09/09/19 @ 01:07 by Brayden Lujan MD) History of appendectomy History of arthroscopy of left shoulder (~05/2019) History of cholecystectomy History of colonoscopy History of cystoscopy with stents History of esophagogastroduodenoscopy (EGD) History of laparoscopy S/P BRANDIE-BSO Family History Uncle Family history of diabetes mellitus Grandmother (Paternal) Family history of diabetes mellitus Brother Heart disease Mother Heart disease Social History Preferred Language: P[place]in[place] Communication Ability: Effective Geological Specialist Required: No Beliefs That Will Affect Care: None Current Living Situation: Alone Other Information That Helps Us Care for You: No Feels Safe at Home: Yes Safety Concerns: Feels Safe At This Time Smoking Status: Current every day smoker Tobacco Type: cigarettes ; Cigarettes Per Day: 5 ; Do You Dip or Chew Tobacco: No ; Second Hand Exposure: No ; Tobacco Cessation Education Requested by Patient: Yes Hx Alcohol Use: No Hx Substance Use: No Physical Exam Physical Exam: Physical Exam: Constitutional: appearance nourished, obese Ears, Nose, Mouth and Throat: mucous membranes moist, no injection and skin normal, eyes normal Cardiovascular: normal S-1 and S-2 and regular rate and rhythm Respiratory: course breath sounds Musculoskeletal: no peripheral edema and good distal pulses Skin: no stigmata of neurocutaneous disease noted and normal and intact Eyes: extraocular muscles intact (EOMI) and pupils equal, round and reactive to light (PERRL), miotic NEUROLOGIC EXAMINATION: Mental status: Alert and interactive Oriented to full date and location Oriented to person Speech fluent with no evidence of aphasia Cranial Nerves slight flattening of nasolabial fold, eye brow raise symmtric Reflexes: Deep tendon reflexes were symmetrical and graded 2/5. down going toes Sensory: light or cool touch Coordination: finger to nose with bilateral essential tremor R>L, head tremor, +Romberg Gait/Stance: Posture normal. Gait normal: with steady with steps, and tandem gait. Motor: Negative for pronator drift of out stretched arms with eyes closed. Strength: hand superior court clerk biceps triceps deltoids 5/5, hip flex plantar flex ext 5/5 Results & Data Vital Signs (Past 12 Hours) Vital Signs Temp Pulse Pulse Resp BP Pulse Ox 09/09/19 12:21 36.7 C 89 18 143/81 H 95 09/09/19 09:00 36.7 C 83 18 135/83 92 09/09/19 07:33 84 09/09/19 07:20 36.6 C 84 18 146/87 H 95 09/09/19 04:16 36.7 C 85 18 120/77 92 Laboratory Results Abnormal lab results 09/08/19 09/08/19 09/08/19 Range/Units 15:20 15:20 18:57 WBC 16.31 H (4.8-10.8) K/uL RDW Std Deviation 49.3 H (36.4-46.3) fL RDW Coeff of Stalin 15.4 H (11.5-14.5) % Immature Gran # (Auto) 0.05 H (0.00-0.02) K/uL Neut # (Auto) 13.21 H (1.4-6.5) K/uL [place] # (Auto) 0.79 H (0.11-0.59) K/uL Potassium (3.5-5.1) mmol/L Chloride 108 H (98-107) mmol/L BUN 6 L (7-18) mg/dl BUN/Creatinine Ratio 6.8 L (10-20) Glucose 101 H (70-99) mg/dl POC Glucose 115 H (70-99) mg/dl Hemoglobin A1c (4.5-5.6) % AST 10 L (15-37) U/L Alkaline Phosphatase 151 H (45-117) U/L Total Protein 8.9 H (6.4-8.2) gm/dl Globulin 5.4 H (2.5-4.0) gm/dl Albumin/Globulin Ratio 0.6 L (0.9-2) Cholesterol (0-200) mg/dl 09/09/19 09/09/19 09/09/19 Range/Units 05:49 05:49 05:49 WBC 10.99 H (4.8-10.8) K/uL RDW Std Deviation 49.9 H (36.4-46.3) fL RDW Coeff of Stalin 15.6 H (11.5-14.5) % Immature Gran # (Auto) (0.00-0.02) K/uL Neut # (Auto) (1.4-6.5) K/uL [place] # (Auto) (0.11-0.59) K/uL Potassium 3.3 L (3.5-5.1) mmol/L Chloride (98-107) mmol/L BUN (7-18) mg/dl BUN/Creatinine Ratio (10-20) Glucose 114 H (70-99) mg/dl POC Glucose (70-99) mg/dl Hemoglobin A1c 5.9 H (4.5-5.6) % AST (15-37) U/L Alkaline Phosphatase (45-117) U/L Total Protein (6.4-8.2) gm/dl Globulin (2.5-4.0) gm/dl Albumin/Globulin Ratio (0.9-2) Cholesterol 253 H (0-200) mg/dl 09/09/19 09/09/19 Range/Units 07:34 12:19 WBC (4.8-10.8) K/uL RDW Std Deviation (36.4-46.3) fL RDW Coeff of Stalin (11.5-14.5) % Immature Gran # (Auto) (0.00-0.02) K/uL Neut # (Auto) (1.4-6.5) K/uL [place] # (Auto) (0.11-0.59) K/uL Potassium (3.5-5.1) mmol/L Chloride (98-107) mmol/L BUN (7-18) mg/dl BUN/Creatinine Ratio (10-20) Glucose (70-99) mg/dl POC Glucose 117 H 126 H (70-99) mg/dl Hemoglobin A1c (4.5-5.6) % AST (15-37) U/L Alkaline Phosphatase (45-117) U/L Total Protein (6.4-8.2) gm/dl Globulin (2.5-4.0) gm/dl Albumin/Globulin Ratio (0.9-2) Cholesterol (0-200) mg/dl Diagnostic Findings MRI brain-No acute intracranial findings. Unremarkable unenhanced MRI of the brain. CTA neck- Mild atherosclerotic ulcerated plaque within the proximal bilateral internal carotid arteries. No stenosis within these vessels. No flow identified within the proximal left vertebral artery with distal reconstitution beginning at the C6 level. This finding is age-indeterminate but probably chronic. CTA head-. 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 CTA lungs- No evidence of acute pulmonary embolism Emphysema No evidence of pneumonia 7 mm solid lingular nodule. A 6-12 month follow-up CT scan is recommended. CXR-Lung volumes are at the lower limits of normal. There is no pneumothorax or pleural effusion. There is no evidence for pulmonary edema. There is slight interstitial prominence. Cardiomediastinal silhouette is unremarkable.
[2019-09-09] MEDS: UMECLIDINIUM/VILANTEROL 62.5/25MCG 7 PUFFS/INHALER INH SCH (14:40)
--- NOTE | 2019-09-09 14:50 | Electrocardiogram Report ---
Test Reason : Blood Pressure : / mmHG Vent. Rate : 117 BPM Atrial Rate : 117 BPM P-R Int : 152 ms QRS Dur : 084 ms QT Int : 326 ms P-R-T Axes : 060 020 057 degrees QTc Int : 454 ms Sinus tachycardia Otherwise normal ECG When compared with ECG of 06-MAY-2019 13:19, No significant change was found Confirmed by Irwin Bhatti ([id number]) on 09/09/2019 2:50:13 PM Referred By: Confirmed By:Mikal Bhatti
[2019-09-09] MEDS ORDERED: PERFLUTREN LIPID MICROSPHERE (DEFINITY) IV ONE (15:27)
--- NOTE | 2019-09-09 18:03 | Hospitalist Progress Note ---
Date of Service September 09, 2019 Assessment & Plan (1) Stroke-like symptom: Persistent right-sided headache with intermittent diplopia, dizziness. Workup is negative for acute stroke. Possible complicated migraine, however, patient doesn't have a history of regular headaches or a history of migraines. Echo reveals no evidence of ASD. Cont ASA and Plavix for now. Lipids elevated. Currently on Zetia with no documented statin intolerance. Will start statin- Lipitor 40mg. Counseled on smoking cessation. Fiorcet trial for headache pain. Pt denies heavy caffeine use. Appreciate Neurology continued recommendations. (2) Chest pain: Describes intermittent chest pain not currently present x last two weeks. This is new for her, normally she walks for exercise and has no issues. No symptoms with exertion, however, chest pain with classic description above in setting of active smoking, dyslipidemia and a strong family history of early MT (Mother with MT in 50s, Brother with fatal MT at 42 yo) deserves attention. She is also a controlled diabetic. No evidence of active ACS including no EKG changes or trop elevation. She did have an elevated WBC, is clinically fatigued and reports not feeling herself. Consulting cardiology to weigh in on her clinical picture and if a stress test may be appropriate for her. Cont to monitor on telemetry. (3) Diabetes mellitus, type 2: Metformin and Victoza on hold. A1C reflects good control. Cont insulin coverage while hospitalized. (4) Dyslipidemia: Elevated fasting lipids. Her current 10-year ASCVD risk score is 16% indicating the need for statin therapy. Would stop Zetia, but defer to Cardiology and PCP. (5) Pulmonary nodule: 7 mm lingular nodule incidentally noted on CT of chest. Patient is a smoker. Follow-up CT in 6 to 12 months recommended. (6) COPD (chronic obstructive pulmonary disease): stable, no evidence of coughing, wheezing, etc. Educated to quit smoking. (7) Hypothyroidism: TSH WNL, cont home levothyroxine. (8) Essential tremor: present, chronic. Continue topiramate. (9) DVT prophylaxis: Lovenox Full Dispo-to home after workup. Nedra Cage DO [facility] Hospitalist Admission and Anticipated Discharge Date Admission Date: September 08, 2019 Subjective 54 yo diabetic smoker without personal history of cardiac disease presented to the ER with a persistent R sided headache associated with dizziness, and visual changes in both eyes, especially with movement. She also reports two weeks of left sided chest pain intermittently, occurring at rest with episodes unprovoked and lasting 10-30 minutes at a time. She reports walking for exercises and denies any chest pain or shortness of breath with exercise. She reports another episode of chest pain on day of discharge described as pain in the left chest that radiates to her left back and down her left arm associated with LUE paresthesias. She does report a treadmill stress test for "screening" approx 5 years ago and said it was normal (report unavailable-performed at OSH in [place]). Reports overall feeling malaise over the past two weeks. Significant family history for CAD including mom with MT in 50s and brother who from MT at 42 years old. Chest pain not present. No paresthesias at this time. No difficulty using arms, legs or walking, no difficulty with word finding or swallowing. No facial droop. Persistent R sided headache present. Review of Systems Review of Systems: All systems reviewed & are unremarkable except as noted in Subjective Physical Exam Physical Exam: CONSTITUTIONAL: WNWD, vitals as above, NAD EYES: EOMI bilaterally, PERRL, normal conjunctivae, no scleral icterus ENT: external ear and nose normal, oropharynx clear, mucous membranes moist RESPIRATORY: clear to auscultation bilaterally, no crackles, rales or wheezes, normal respiratory effort CARDIOVASCULAR: regular rate and rhythm, S1 and 2 heard without murmurs, gallops or rubs, no JVD, no peripheral edema GASTROINTESTINAL: soft, nontender, nondistended MUSCULOSKELETAL: strength 5/5 throughout, head is normocephalic and atraumatic SKIN: warm and dry NEUROLOGIC: No facial palsy, no dysarthria. CN 2-12 grossly intact, no sensory deficit, normal cognition, normal speech PSYCHIATRIC: alert cooperative and oriented to person, place and time. Euthymic mood, makes good eye contact, language grossly intact, recent and remote memory grossly intact. Results & Data ([facility]) Vital Signs (Past 12 Hours) Vital Signs Temp Pulse Pulse Resp BP Pulse Ox 09/09/19 17:02 91 H 09/09/19 14:52 36.8 C 85 18 146/89 H 96 09/09/19 12:21 36.7 C 89 18 143/81 H 95 09/09/19 09:00 36.7 C 83 18 135/83 92 09/09/19 07:33 84 09/09/19 07:20 36.6 C 84 18 146/87 H 95 Laboratory Results Short CBC 09/09/19 Range/Units 05:49 WBC 10.99 H (4.8-10.8) K/uL Hgb 14.5 (12.0-16.0) g/dL Hct 44.3 (37-47) % Plt Count 330 (130-400) K/uL BMP 09/09/19 05:49 Sodium 138 Potassium 3.3 L Chloride 107 Carbon Dioxide 22 BUN 9 Creatinine 0.84 Glucose 114 H Calcium 9.0 Medications Administered Current Inpatient Medications Acetaminophen (Tylenol) 650 mg PO Q4H PRN PRN Reason: Pain or Fever Stop: 10/08/19 18:59 Last Admin: 09/09/19 13:43 Dose: 650 mg Documented by: Acetaminophen/Butalbital/Caffeine (Fioricet) 1 tab PO NOW STA Stop: 09/09/19 18:02 Albuterol (Ventolin Hfa) 2 puffs INH Q4H PRN PRN Reason: Wheezing Stop: 10/08/19 20:22 Aspirin (Ecotrin Ectab) 81 mg PO [facility] Stop: 10/09/19 08:59 Last Admin: 09/09/19 08:24 Dose: 81 mg Documented by: Clopidogrel Bisulfate (Plavix) 75 mg PO [facility] Stop: 10/09/19 08:59 Last Admin: 09/09/19 08:24 Dose: 75 mg Documented by: Dextrose (Dextrose 50%) 25 - 50 ml IV UD PRN; Protocol PRN Reason: Hypoglycemia Protocol Stop: 10/08/19 20:44 Dicyclomine HCl (Bentyl) 20 mg PO QID PRN PRN Reason: Abdominal Pain Stop: 10/08/19 20:22 Duloxetine HCl (Cymbalta) 60 mg PO [facility] Stop: 10/09/19 08:59 Last Admin: 09/09/19 08:24 Dose: 60 mg Documented by: Ezetimibe (Zetia) 10 mg PO [facility] Stop: 10/09/19 08:59 Last Admin: 09/09/19 08:25 Dose: 10 mg Documented by: Enoxaparin Sodium (Lovenox) 40 mg SQ [facility] Stop: 10/08/19 20:59 Last Admin: 09/08/19 21:03 Dose: 40 mg Documented by: Glucagon (Glucagen) 1 mg IM UD PRN; Protocol PRN Reason: Hypoglycemia Protocol Stop: 10/08/19 20:44 Glucose (Glucose 40%) 15 - 30 gm PO UD PRN; Protocol PRN Reason: Hypoglycemia Protocol Stop: 10/08/19 20:44 Glucose (Dex4 Glucose) 4 - 8 tabs PO UD PRN; Protocol PRN Reason: Hypoglycemia Protocol Stop: 10/08/19 20:44 Ibuprofen (Motrin) 600 mg PO QID PRN PRN Reason: pain or headache Stop: 10/08/19 20:27 Last Admin: 09/09/19 05:05 Dose: 600 mg Documented by: Insulin Aspart (Novolog Flexpen) 0 units SC ACHS [facility] Stop: 10/08/19 20:59 Last Admin: 09/09/19 17:25 Dose: 2 units Documented by: Insulin Glargine (Lantus Solostar Pen) 0 units SC BID [facility]; Protocol Stop: 10/08/19 20:59 Last Admin: 09/09/19 08:30 Dose: 4 units Documented by: Ioversol (Optiray 320 125ml) 119 ml IV ONCE PRN PRN Reason: Interaction Checking Stop: 09/12/19 16:21 Last Admin: 09/08/19 16:22 Dose: 119 ml Documented by: Levothyroxine Sodium (Synthroid) [facility] Stop: 10/09/19 06:29 Last Admin: 09/09/19 05:06 Dose: 75 mcg Documented by: Magnesium Oxide (Mag-Ox) 400 mg PO [facility] Stop: 10/08/19 20:59 Last Admin: 09/08/19 21:04 Dose: 400 mg Documented by: Meclizine HCl (Antivert) 25 mg PO TID PRN PRN Reason: DIZZINESS Stop: 10/08/19 20:34 Last Admin: 09/09/19 09:11 Dose: 25 mg Documented by: Miscellaneous (Order Awaiting Action) 1 ea N/A QS [facility] Stop: 10/08/19 20:44 Last Admin: 09/09/19 16:48 Dose: Not Given Documented by: Miscellaneous (Carbohydrates For Hypoglycemia) 15 - 30 gm PO UD PRN PRN Reason: Hypoglycemia Treatment Stop: 10/08/19 20:44 Miscellaneous Information (Pharmacist Discharge Med Rec Consult) 1 ea N/A UD PRN PRN Reason: Consult Stop: 10/08/19 18:59 Ondansetron HCl (Zofran) 4 mg IV Q6H PRN PRN Reason: Nausea Stop: 10/09/19 09:46 Pantoprazole Sodium (Protonix) 40 mg PO BID [facility] Stop: 10/08/19 20:59 Last Admin: 09/09/19 08:24 Dose: 40 mg Documented by: Topiramate (Topamax) 25 mg PO TID [facility] Stop: 10/08/19 20:59 Last Admin: 09/09/19 13:39 Dose: 25 mg Documented by: Umeclidinium/Vilanterol (Anoro Ellipta 62.5/25 Mcg Inh) 1 puffs INH DAILY [facility] Stop: 10/09/19 14:59 Last Admin: 09/09/19 14:40 Dose: 1 puffs Documented by:
[2019-09-09] MEDS ORDERED: BUTALBITAL/ACETAMIN/CAFFEINE TAB PO ONE (18:30)
[2019-09-09] MEDS: MAGNESIUM OXIDE 400 MG TAB PO SCH (20:51)
[2019-09-09] MEDS: ENOXAPARIN INJ 40 MG/0.4 ML SYR SQ SCH (20:51)
[2019-09-10] MEDS: IBUPROFEN 600 MG TAB PO PRN ×2 (00:02→16:14)
[2019-09-10] MEDS: LEVOTHYROXINE SODIUM 75 MCG TABLET PO SCH (05:35)
[2019-09-10 07:47] LABS: Hematocrit (blood only) 43.6 % (37-47); Hemoglobin 14.1 g/dL (12.0-16.0); Mean Corpuscular Hemoglobin 28.5 pg (25-34); Mean Corpuscular Hgb Conc 32.3 g/dL (32-36); Mean Corpuscular Volume 88.3 fL (80-100); Mean Platelet Volume 9.2 fL (7.4-10.4); Platelet Count 307 K/uL (130-400); RDW Coefficient of Variation 15.7 % (11.5-14.5); RDW Standard Deviation 50.5 fL (36.4-46.3); Red Blood Count 4.94 M/uL (4.2-5.4); White Blood Count 7.48 K/uL (4.8-10.8)
[2019-09-10] MEDS: INSULIN ASPART 100 UNITS/ML 3 ML PEN SC SCH ×2 (07:54→11:44)
[2019-09-10] MEDS: TOPIRAMATE 25 MG TAB PO SCH ×2 (07:57→14:56)
[2019-09-10] MEDS: ASPIRIN 81 MG ECTAB PO SCH (07:57)
[2019-09-10] MEDS: INSULIN GLARGINE SOLOSTAR 100 UNITS/ML 3 ML PEN SC SCH (07:57)
[2019-09-10] MEDS: EZETIMIBE 10 MG TABLET PO SCH (07:57)
[2019-09-10] MEDS: DULOXETINE HCL 60 MG CAP PO SCH (07:57)
[2019-09-10] MEDS: UMECLIDINIUM/VILANTEROL 62.5/25MCG 7 PUFFS/INHALER INH SCH (07:57)
[2019-09-10] MEDS: CLOPIDOGREL BISULFATE 75 MG TAB PO SCH (07:57)
[2019-09-10] MEDS: PANTOprazole 40 MG TAB PO SCH (07:57)
[2019-09-10 08:25] LABS: Albumin Level 3.1 gm/dl (3.4-5.0); BUN Creatinine Ratio 14.1 (10-20); Calcium 9.3 mg/dl (8.5-10.1); Creatinine Clr Calc Pharmacy 101.1 ml/min; Est GFR (African American) 103.1; Est GFR (Non-African American) 88.9; Potassium 3.7 mmol/L (3.5-5.1)
[2019-09-10 08:28] LABS: Albumin Globulin Ratio 0.7 (0.9-2); Bilirubin,Total 0.3 mg/dl (0.2-1); Globulin 4.6 gm/dl (2.5-4.0); Total Protein 7.7 gm/dl (6.4-8.2)
[2019-09-10] MEDS ORDERED: ATORVASTATIN 40 MG TAB PO SCH (09:00)
--- NOTE | 2019-09-10 13:59 | Cardiology Consultation ---
Date of Consultation September 10, 2019 Assessment & Plan (1) Atypical chest pain: Patient presents with chest pain atypical for angina or acute coronary syndrome with normal EKGs and normal cardiac enzymes. Presentation initially felt to be due to complex migraine with noted hypertension on presentation Patient does carry strong familial history of premature coronary disease and multiple cardiac risk factors Recommendations: Would address risk factors. Hypertension should be treated p atient has indications for an KAYCEE inhibitor or ARB given diabetes as well as indications for beta-geena with migraine disease. Lipids should be addressed and treated. Patient previously on atorvastatin with out noted indications for discontinuation. Could consider rosuvastatin as alternative Tobacco cessation is mandated Recommend stress testing for risk factor screening once above addressed (2) HTN (hypertension): (3) Hyperlipidemia: (4) Stroke-like symptom: History of Present Illness Reason for Consultation: Cardiac evaluation Requesting Physician: Dr. Nedra Cage Attending Physician: Nedra Cage, History of Present Illness Patient is a 54-year-old female without prior history of cardiac disease. She does carry a complex constellation of medical issues which include 1. Hyperlipidemia 2. Hypertension 3. Type 2 diabetes mellitus 4. COPD with chronic tobacco use 5. Migraine cluster headache syndrome 6. Fibromyalgia 7. Chronic essential tremor Patient presents this admission describing severe sharp right-sided head pain with associated paresthesias and weakness. Events were associated with significant elevation in blood pressures as well. She did describes shoulder and arm pain in association with complaints as well as left-sided weakness. Initial evaluation suggest complex migraine etiology per neurology. Patient is referred for evaluation of symptoms and risk factors. She denies any prior history of known cardiac disease. She denies rheumatic fever scarlet fever or angina congestive heart failure or myocardial infarction. She is able to walk to a relatively high level workload without associated symptoms other than complaints as described. She does carry a strong family history of familial heart disease. Notes no bleeding difficulties melena medication dysuria hematuria. Appetite and weight have been generally stable. No sleep disturbance Allergies Allergy/AdvReac Type Severity Reaction Status Date / Time No Known Allergies Allergy Unknown Verified 07/01/19 15:34 Home Medications Home Medications Medication Instructions Recorded Confirmed Type Victoza 2-Sonny 0.6 mg SUBCUT QAM 03/21/19 09/08/19 History dicyclomine 20 mg PO QID PRN 03/21/19 09/08/19 History duloxetine [Cymbalta] 60 mg PO QAM 03/21/19 09/08/19 History ezetimibe 10 mg PO QAM 03/21/19 09/08/19 History levothyroxine 75 mcg PO QAM 03/21/19 09/08/19 History magnesium oxide 400 mg PO HS 03/21/19 09/08/19 History metformin 1,000 mg PO BID 03/21/19 09/08/19 History omeprazole 40 mg PO BID 03/21/19 09/08/19 History topiramate 25 mg PO TID 03/21/19 09/08/19 History albuterol sulfate 2 puff INHALATION Q4H PRN 09/08/19 09/08/19 History ammonium lactate 1 applic TOPICAL BID 09/08/19 09/08/19 History glycopyrrolate-formoterol [Bevespi 2 puff INHALATION BID 09/08/19 09/08/19 History Aerosphere] meclizine 25 mg PO TID PRN 09/08/19 09/08/19 History Patient History Medical History Adhesive capsulitis of left shoulder Anxiety Chronic back pain COPD (chronic obstructive pulmonary disease) Depression Diabetes mellitus, type 2 niddm Essential tremor takes topamax daily Fibromyalgia Hyperlipidemia Hypothyroidism Kidney stones Migraine cluster migraines Osteoarthritis Post traumatic stress disorder Rupture of kidney right kidney (~). no surgical intervention. currently working normal. Surgical History History of appendectomy History of arthroscopy of left shoulder (~05/2019) History of cholecystectomy History of colonoscopy History of cystoscopy with stents History of esophagogastroduodenoscopy (EGD) History of laparoscopy S/P BRANDIE-BSO Family History Uncle Family history of diabetes mellitus Grandmother (Paternal) Family history of diabetes mellitus Brother Heart disease Mother Heart disease Social History Preferred Language: Citizen Of [place] Communication Ability: Effective Panelbeater Required: No Beliefs That Will Affect Care: None Current Living Situation: Alone Other Information That Helps Us Care for You: No Feels Safe at Home: Yes Safety Concerns: Feels Safe At This Time Smoking Status: Current every day smoker Tobacco Type: cigarettes ; Cigarettes Per Day: 5 ; Do You Dip or Chew Tobacco: No ; Second Hand Exposure: No ; Tobacco Cessation Education Requested by Patient: Yes Hx Alcohol Use: No Hx Substance Use: No Review of Systems Review of Systems: All systems reviewed & are unremarkable except as noted in HPI & below Physical Exam Constitutional: WD/WN, vitals as above + obese Eyes: PERRL, conjunctivae normal, anicteric sclerae ENMT: external ear and nose normal, oropharynx normal Neck: trachea midline, no thyromegaly Respiratory: normal respiratory effort, lungs clear to auscultation Cardiovascular: Rate/Rhythm: regular rate and regular rhythm Heart Sounds: normal S1 and normal S2; no gallop and no murmur Palpation: normal PMI Vessels: normal carotid upstroke and radial pulses present; no JVD and no carotid bruit Extremities: no edema Gastrointestinal (Abdomen): normal bowel sounds, soft, nontender, no hepatosplenomegaly Musculoskeletal: no cyanosis or clubbing, extremities motor strength 5/5 Skin: no rashes, warm and dry Neurologic: PERRL, EOMI, accommodation nl, no face palsy, no dysarthria Psychiatric: A+Ox3, euthymic affect Results & Data ([facility]) Vital Signs (Past 12 Hours) Vital Signs Temp Pulse Pulse Resp BP Pulse Ox 09/10/19 11:29 37.3 C 81 19 131/80 94 09/10/19 11:25 36.6 C 70 18 145/75 H 94 09/10/19 09:00 85 09/10/19 07:17 36.7 C 89 16 123/66 96 09/10/19 03:00 37 C 86 20 142/85 H 95 Laboratory Results Laboratory Results - last 24 hr 09/09/19 09/09/19 09/09/19 16:57 18:15 20:33 WBC RBC Hgb Hct MCV MCH MCHC RDW Std Deviation RDW Coeff of Stalin Plt Count MPV Sodium Potassium Chloride Carbon Dioxide Anion Gap BUN Creatinine Est Cr Clr Drug Dosing Est GFR ( Amer) Est GFR (Non-Af Amer) BUN/Creatinine Ratio Glucose POC Glucose 110 H 112 H Calcium Total Bilirubin AST ALT Alkaline Phosphatase Total Creatine Kinase Troponin I < 0.015 Total Protein Albumin Globulin Albumin/Globulin Ratio 0209/10/19 09/10/19 07:30 07:33 07:33 WBC 7.48 RBC 4.94 Hgb 14.1 Hct 43.6 MCV 88.3 MCH 28.5 MCHC 32.3 RDW Std Deviation 50.5 H RDW Coeff of Stalin 15.7 H Plt Count 307 MPV 9.2 Sodium 139 Potassium 3.7 Chloride 109 H Carbon Dioxide 23 Anion Gap 7.0 BUN 11 Creatinine 0.76 Est Cr Clr Drug Dosing 101.1 Est GFR ( Amer) 103.1 Est GFR (Non-Af Amer) 88.9 BUN/Creatinine Ratio 14.1 Glucose 95 POC Glucose 110 H Calcium 9.3 Total Bilirubin 0.3 AST 9 L ALT 14 Alkaline Phosphatase 124 H Total Creatine Kinase 43 Troponin I Total Protein 7.7 Albumin 3.1 L Globulin 4.6 H Albumin/Globulin Ratio 0.7 L 09/10/19 11:33 WBC RBC Hgb Hct MCV MCH MCHC RDW Std Deviation RDW Coeff of Stalin Plt Count MPV Sodium Potassium Chloride Carbon Dioxide Anion Gap BUN Creatinine Est Cr Clr Drug Dosing Est GFR ( Amer) Est GFR (Non-Af Amer) BUN/Creatinine Ratio Glucose POC Glucose 102 H Calcium Total Bilirubin AST ALT Alkaline Phosphatase Total Creatine Kinase Troponin I Total Protein Albumin Globulin Albumin/Globulin Ratio ECG Additional Comments: Serial EKGs demonstrate normal studies other than sinus tachycardia on initial presentation.
--- NOTE | 2019-09-10 16:10 | Discharge Summary ---
Date of Service September 10, 2019 Admission HPI Per Admitting Provider 54-year-old female followed by Dr. Matson. History of COPD, diabetes mellitus type 2, cluster headaches, tremor. Experiencing severe right-sided headaches intermittently over the last 2 weeks. Symptoms are different than her cluster headaches. Headaches located in the right parietal region and described as sharp/stabbing. They last for 5- 30 minutes at a time, 4 5 times per day. Headaches associated with dizziness, diplopia, paresthesiae of tongue and lips. Meclizine helps with the dizziness, but not with the other symptoms. Also notes some left-sided weakness. No difficulty ambulating. Patient came to the ED for evaluation. Stroke alert with neurology telemedicine consultation with [facility] obtained. It was felt that TPA not indicated given the nature of the patient's symptoms. Antiplatelet therapy was recommended and patient received aspirin and clopidogrel in the ED. Admission Exam Per Admitting Provider (per ER provider) Constitutional: Vital signs reviewed. Eyes: Pupils are equal round reactive to light. Conjunctiva are noninjected. ENT: Pharynx is clear without erythema or exudate. Mucous membranes are moist. Neck supple without meningeal signs. Respiratory: Clear to auscultation bilaterally. Breath sounds are equal bilaterally. Cardiovascular: Tachycardic. Heart rate 111.. No rubs or gallops. GI: Soft, nondistended and nontender. Bowel sounds are present. Musculoskeletal: No peripheral edema. No lower extremity tenderness. Integumentary: No cyanosis. or jaundice. Neurologic: The patient is awake and alert. Cranial nerves II-XII are intact. Motor is 5 out of 5 on the right side. Motor strength is 4/5 on the left upper and lower extremity. Sensation is intact to light touch all extremities. Normal speech. Left pronator drift. Slight ataxia in the left upper and lower extremity. Psychiatric: Normal affect. Not anxious appearing. Principal Diagnosis Complex migraine Atypical chest pain elevated BP-appears situational leukocytosis-resolved Discharge Exam CONSTITUTIONAL: WNWD, NAD EYES: normal conjunctivae, no scleral icterus ENT: external ear and nose normal, oropharynx clear, mucous membranes moist RESPIRATORY: clear to auscultation bilaterally, no crackles, rales or wheezes, normal respiratory effort CARDIOVASCULAR: regular rate and rhythm, S1 and 2 heard without murmurs, gallops or rubs, no JVD, no peripheral edema GASTROINTESTINAL: soft, nontender, nondistended MUSCULOSKELETAL: strength 5/5 throughout, head is normocephalic and atraumatic SKIN: warm and dry NEUROLOGIC: No facial palsy, no dysarthria. CN 2-12 grossly intact, no sensory deficit, normal cognition, normal speech PSYCHIATRIC: alert cooperative and oriented to person, place and time. Euthymic mood, makes good eye contact, language grossly intact, recent and remote memory grossly intact. Discharge Data Allergies Allergy/AdvReac Type Severity Reaction Status Date / Time No Known Allergies Allergy Unknown Verified 07/01/19 15:34 Consultations 09/08/19 17:02 ED Decision to Admit Stat 09/08/19 19:00 Consult Case Management - Discharge Planning Routine 09/09/19 08:00 Consult Neurology Routine 09/10/19 05:09 Consult Cardiology Routine Ordered Studies 09/08/19 16:18 CT angio chest PE protocol Stat CT angio head w con Stat CT angio neck with con Stat CT head/brain wo con Stat 09/09/19 00:45 MR brain wo con Routine Hospital Course (1) Complicated migraine: (2) Chest pain: (3) Diabetes mellitus, type 2: (4) Dyslipidemia: (5) Pulmonary nodule: 50-year-old 4-year-old patient presented with concerning strokelike symptoms including a right-sided headache that was consistent and associated with diplopia and dizziness, especially with standing. A stroke alert was ca lled and TPA was not considered an option as the last known well time was not firmly established. She also reported intermittent chest pain for the past 2 weeks with episodes lasting anywhere from 10 to 30 minutes. She separately described paresthesia in her left upper extremity which was persistent. She was admitted to the hospitalist service and work-up included a CT of the head revealing no hemorrhage or other acute findings. 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 An MRI of the brain was performed and revealed no acute intracranial abnormalities. An echocardiogram was performed and was within normal limits with no evidence of intra-atrial shunt. She was started on antiplatelet therapy with aspirin and clopidogrel and smoking cessation was strongly recommended. [facility] neurology was consulted and saw the patient the following day. It was noted that the patient had received care and treatment f or chronic headaches in the past associated with chronic tremors and was on topiramate for prophylaxis. After discussion with the neurology group, symptoms were most consistent with a complicated migraine. Symptoms were improving with time, and given the patient's personal vascular risk, family history of early CAD including a brother who of an CO at 42 years old, left vertebral artery that was occluded, neurology agreed with some form of antiplatelet treatment. As her she neurology had initially recommended dual aspirin and Plavix therapy, so he this was continued and neurology recommended dual antiplatelet therapy for 3 weeks then aspirin 81 mg monotherapy indefinitely after this. Smoking cessation, good control of blood pressure which was slightly elevated on admission, continued good glucose control in the setting of diabetes and initiation of treatment of her uncontrolled hyperlipidemia was felt to be important with stroke risk reduction as well as overall good health. It was not thought that the patient needed any additional prophylaxis for migraine at present but if needed an increase in Topamax could be considered. Follow-up in the neurology clinic as outpatient for her chronic headaches and to ensure she was doing well after discharge, was recommended nonurgently. Regarding her chest pain episodes, cardiology was consulted. Prior to them seeing her ACS was ruled out with serial negative troponins and no evidence of ischemia on EKG. Additionally, her echo did not show any evidence of acute wall motion normality. Per cardiology recommendations, addressing her modifiable risk factors for coronary disease including those listed above would be step 1 prior to any further ischemic work-up. An ischemic work-up may be considered after that if symptoms persist. At time of discharge he was hemodynamically stable and afebrile and tolerating p.o. She was mentating and ambulating at baseline and physical exam revealed no acute neurologic deficits. She was chest pain-free at time of discharge. Close primary care follow-up was recommended. A 7 mm lingular nodule was incidentally noted on CT of the chest. As a patient is a smoker follow-up CT in 6 to 12 months is recommended. This can be ordered through the patient's primary care doctor and was disclosed to her at time of discharge. Total Time Total Time Spent Total Time Spent (In Minutes): 60 Total Time Includes: Examination of the Patient, Discharge Planning, Medication Reconciliation and Communication With Other Providers Discharge Plan Discharge Items Patient Disposition: Home - Self-Care Reason For Visit: STROKE-LIKE SYMPTOMS Discharge Diagnosis: Complex migraine Atypical chest pain elevated BP-appears situational leukocytosis-resolved Condition on Discharge: Good Goals: STOP SMOKING Activity: Resume your previous activity Driving/Machine Use: Resume 3 days after discharge Non-emergency contact: Primary Care Provider Call non-emergency contact if: you have any medication questions, your symptoms worsen, your pain is not controlled, your pain is worsening, your pain is unusual for you, your pain is concerning for you and you have a fever Follow-up/Referrals: Kavin Matson MD [Primary Care Provider] - 09/15/19 11:25 am Diet: Carb Consistent or DM2 and Heart Healthy Addtl Attending Provider Instructions: Please take all medications as instructed on discharge list below. It does not appear that you had a stroke, however, you do have a history of headaches. The drug combination prescribed to help you get rid of any lasting headaches as needed at home includes taking all of the following at once after onset of headache that is severe or refractory: gabapentin 100mg (1 pill), Magnesium 400mg (1 pill), riboflavin 400mg (1 pill), and Motrin 600mg (1 pill). Take this cocktail no more than 2-3 times per week. It is recommended that you follow up with your primary care provider within one week of discharge to ensure that your symptoms have resolved, and that we address the following issues: address hyperlipidemia (started on atorvastatin at discharge), recheck blood pressure which was elevated on admission to the hospital, address smoking cessation, consider ACEI or ARB use in setting of diabetes. It is also recommended that you obtain a follow-up with [facility] Neurology to re-evaluate your headaches and tremors. It is strongly recommended that you quit smoking as it is very bad for your health and contributes to your risk of cardiac disease. It was a pleasure taking care of you! Please call if you have any questions or problems. You can reach a [facility] hospitalist on duty at [facility] 24 hours a day by calling [phone]. Take care of yourself. Nedra Cage, [facility] Hospitalist Pending Studies at Discharge: No Stand-Alone Forms: My [facility], Smoking Cessation Medications and DC Order Prescriptions: New atorvastatin 40 mg Tablet 40 mg PO QAM Qty: 30 RF: 1 aspirin 81 mg Tablet,Delayed Release (Dr/Ec) 81 mg PO QAM Qty: 90 RF: 1 ibuprofen 600 mg Tablet 600 mg PO TID PRN (Reason: headache) Qty: 30 RF: 0 riboflavin (vitamin B2) 400 mg tablet 400 mg PO DAILY PRN (Reason: headache) Qty: 30 RF: 0 gabapentin 100 mg capsule 100 mg PO DAILY PRN (Reason: headache) Qty: 30 RF: 0 Continued topiramate 25 mg tablet 25 mg PO TID RF: 0 omeprazole 40 mg capsule,delayed release(DR/EC) 40 mg PO BID RF: 0 levothyroxine 75 mcg tablet 75 mcg PO QAM RF: 0 dicyclomine 20 mg tablet 20 mg PO QID PRN (Reason: Abdominal Pain) RF: 0 metformin 1,000 mg tablet 1,000 mg PO BID RF: 0 duloxetine [Cymbalta] 60 mg Capsule,Delayed Release(Dr/Ec) 60 mg PO QAM RF: 0 Victoza 2-Sonny 0.6 mg/0.1 mL (18 mg/3 mL) Pen Injector 0.6 mg subcut QAM RF: 0 magnesium oxide 400 mg magnesium capsule 400 mg PO HS RF: 0 meclizine 25 mg tablet 25 mg PO TID PRN (Reason: Dizziness) RF: 0 ammonium lactate 12 % cream 1 applic TOPICAL BID RF: 0 albuterol sulfate 90 mcg/actuation HFA aerosol inhaler 2 puff INHALATION Q4H PRN (Reason: Wheezing) RF: 0 Bevespi Aerosphere 9-4.8 mcg HFA aerosol inhaler 2 puff INHALATION BID RF: 0 Discontinued ezetimibe 10 mg tablet 10 mg PO QAM RF: 0 Discharge Orders: Discharge Order (Routine); Ordered 09/10/19 Ordered By: Nedra Cage Admission Data Admit Date/Time: 09/09/19 18:01 Attending Provider: Nedra Cage Admit Provider: Nedra Cage Primary Care Provider: Kavin Matson Other Providers: Brayden Lujan ; Cindy Hi ; Ruel Bhatt Other Interventions: Discharge Summary Assessment (RN) Last Done: 09/10/19 16:25 DC Date/Time DO NOT enter until pt leaves facility: 09/10/19 17:14
--- NOTE | 2019-09-10 19:01 | Electrocardiogram Report ---
Test Reason : Blood Pressure : / mmHG Vent. Rate : 084 BPM Atrial Rate : 084 BPM P-R Int : 172 ms QRS Dur : 088 ms QT Int : 406 ms P-R-T Axes : 062 019 066 degrees QTc Int : 479 ms Normal sinus rhythm Normal ECG When compared with ECG of 08-SEP-2019 15:18, No significant change was found Confirmed by Irwin Bhatti ([id number]) on 09/10/2019 7:01:35 PM Referred By: REFERRED SELF Confirmed By:Mikal Bhatti
== END 2019-09-10 17:14 | disposition home or self-care (01) | DRG 103 ==
LOC: ED 14:57 → 2N 14:57 → SUATTDRO 17:09 → 2N 18:06

== ENCOUNTER 2023-02-13 15:44 | Inpatient (IN) ==
[2023-02-13 16:53] LABS: Basophils # (auto) 0.04 K/uL (0-0.2); Basophils % (auto) 0.4 %; Eosinophils # (auto) 0.08 K/uL (0-0.50); Eosinophils % (auto) 0.8 %; Hematocrit (blood only) 49.8 % (37.0-47.0); Hemoglobin 16.2 g/dl (12.0-16.0); Immature Granulocytes # (auto) 0.03 K/uL (0.01-0.20); Immature Granulocytes % (auto) 0.3 %; Lymphocytes # (auto) 1.23 K/uL (1.2-3.4); Lymphocytes % (auto) 11.8 %; Mean Corpuscular Hemoglobin 27.6 pg (25.0-34.0); Mean Corpuscular Hgb Conc 32.5 g/dL (32.0-36.0); Mean Corpuscular Volume 84.7 fL (80.0-100.0); Mean Platelet Volume 9.3 fL (9.4-12.4); Monocytes # (auto) 0.52 K/uL (0.11-0.59); Neutrophils # (auto) 8.54 K/uL (1.40-6.50); Neutrophils % (auto) 81.7 %; Platelet Count 424 K/uL (130-400); RDW Coefficient of Variation 16.2 % (11.5-14.5); RDW Standard Deviation 48.4 fL (36.4-46.3); Red Blood Count 5.88 M/uL (4.20-5.40); White Blood Count 10.44 K/ul (4.8-10.8)
[2023-02-13] MEDS ORDERED: SODIUM CHLORIDE 0.9% 1000ML 2,000 ML IV ONE (16:56)
[2023-02-13 16:58] LABS: Appearance Urine Cloudy (Clear); Bilirubin Urine 2+ (Negative); Blood Urine Trace-intact (Negative); Color Urine Yellow; Glucose Urine UA Negative (Negative); Ketones Urine Trace (Negative); Leukocyte Esterase Urine Negative (Negative); Nitrite Urine Negative (Negative); Protein Urine 3+ (Negative); Specific Gravity Urine >= 1.030 (1.000-1.030); Urobilinogen Urine Negative (Negative); pH Urine 5.5 (4.5-7.5)
[2023-02-13 17:09] LABS: Albumin Level 4.7 gm/dl (3.4-5.0); BUN Creatinine Ratio 9.6 (10-20); Bilirubin,Total 0.5 mg/dl (0.2-1.0); Calcium 10.2 mg/dl (8.6-10.3); Creatinine Clr Calc Pharmacy 72.4 ml/min; Est GFR (African American) 69.1 ml/min; Est GFR (Non-African American) 59.6 ml/min; Globulin 4.7 gm/dl (2.5-4.0); Magnesium 1.9 mg/dl (1.7-2.4); Potassium 3.8 mmol/L (3.5-5.1); Total Protein 9.4 gm/dl (6.0-8.3)
[2023-02-13] MEDS ORDERED: VANCOMYCIN HCL 2,000 MG in SODIUM CHLORIDE 0.9% 500 ML IV ONE (17:14)
[2023-02-13] MEDS ORDERED: VANCOMYCIN CONSULT ACTIVE PRN (17:14)
--- NOTE | 2023-02-13 17:20 | XRay Report ---
XR chest 1V portable CLINICAL HISTORY: Sepsis. COMPARISON STUDY: Chest CT and chest radiograph September 08, 2019. FINDINGS: Lung volumes are normal. There is no consolidation to suggest pneumonia. Minimal linear lef t basilar density favors atelectasis or scarring. There is no pneumothorax or pleural effusion. Cardi ac size is normal. Mediastinal contours are normal. There is no evidence for pulmonary edema. IMPRESSION: No acute cardiopulmonary findings. ACT 112: Negative or not required by law. Electronically signed by: Elier Michael M.D. 02/13/2023 5:19 PM
[2023-02-13 17:21] LABS: Partial Thromboplastin Time 29.6 Seconds (21.0-31.0); Prothrombin Time 10.9 Seconds (9.0-12.0)
[2023-02-13 17:28] LABS: Epithelial Cell Urine >30 /lpf (0-5); RBC Urine 0-4 /hpf (0-4)
[2023-02-13 17:29] LABS: Bacteria Urine 2+ (Negative)
[2023-02-13] MEDS ORDERED: cefTRIAXone SODIUM 2,000 MG/70 ML BAG IV STA (17:44)
[2023-02-13] MEDS ORDERED: KETOROLAC TROMETHAMINE 15 MG/ML VIAL IV STA (18:04)
--- NOTE | 2023-02-13 18:05 | XRay Report ---
XR tibia fibula LT 2V CLINICAL HISTORY: wound COMPARISON: None FINDINGS: A distal left fibular internal fixation with plate and screws is noted. Hardware is intact . There is no acute fracture within the left tibia or fibula. An anterior left lower leg wound is not ed. There is no evidence for acute osteomyelitis. No radiopaque foreign bodies are identified. IMPRESSION: 1. Anterior left lower leg wound. No acute fracture, radiopaque foreign body or evidence for acute os teomyelitis within the left tibia or fibula. 2. Status post distal left fibular internal fixation. ACT 112: Negative or not required by law. Electronically signed by: Elier Michael M.D. 02/13/2023 6:04 PM
--- NOTE | 2023-02-13 20:09 | Emergency Department Note ---
History of Present Illness General Chief complaint: Leg Injury/Pain Stated complaint: GASH LEFT LEG Time Seen by Provider: 02/13/23 16:56 History of Present Illness Provider complaint: Left leg pain Maximum Pain Intensity: 6 57-year-old female presents emergency department for left leg pain. Patient states she fell approximately 2 weeks ago and cut her left leg. She states since that she has been having increasing pain. Patient states she did not see a doctor about the left leg pain. She states she let it heal on its own and start to scab over. She reports some redness around the scab. She reports no chest pain. No difficulty breathing. She reports chills but no fevers. No dysuria or hematuria. No cough. Home Medications Medication Instructions Recorded Confirmed Type dicyclomine 20 mg tablet 20 mg PO QID PRN Abdominal Pain 03/21/19 02/13/23 History duloxetine 60 mg capsule,delayed 60 mg PO QAM 03/21/19 02/13/23 History release (Cymbalta) levothyroxine 75 mcg tablet 75 mcg PO QAM 03/21/19 02/13/23 History liraglutide 0.6 mg/0.1 mL (18 mg/3 1.6 mg subcut QAM 03/21/19 02/13/23 History mL) subcutaneous pen injector (The Poshpacker 2-Sonny) magnesium oxide 400 mg PO HS 03/21/19 02/13/23 History omeprazole 40 mg capsule,delayed 40 mg PO BID 03/21/19 02/13/23 History release albuterol sulfate 90 mcg/actuation 2 puff inhalation Q4H PRN Wheezing 09/08/19 02/13/23 History aerosol inhaler ammonium lactate 12 % topical cream 1 applic topical BID PRN Dry Skin 09/08/19 02/13/23 History glycopyrrolate 9 mcg-formoterol 2 puff inhalation BID 09/08/19 02/13/23 History 4.8 mcg HFA aerosol inhaler (Bevespi Aerosphere) meclizine 25 mg tablet 25 mg PO TID PRN Dizziness 09/08/19 02/13/23 History aspirin 81 mg tablet,delayed 81 mg PO QAM #90 tabs 09/10/19 02/13/23 Rx release atorvastatin 40 mg tablet 40 mg PO QAM #30 tabs 09/10/19 02/13/23 Rx ibuprofen 600 mg tablet 600 mg PO TID PRN headache #30 tabs 09/10/19 02/13/23 Rx riboflavin (vitamin B2) 400 mg 400 mg PO DAILY PRN headache #30 09/10/19 02/13/23 Rx tablet tabs naproxen 500 mg tablet 500 mg PO Q12H #14 tabs 10/22/19 02/13/23 Rx ondansetron 4 mg disintegrating 4 mg PO Q6H PRN nausea and 10/22/19 02/13/23 Rx tablet vomiting #14 tabs bupropion HCl 150 mg tablet,12 hr 150 mg PO DIRECTED 02/13/23 02/13/23 History sustained-release ergocalciferol (vitamin D2) 1,250 1,250 mcg PO WK 02/13/23 02/13/23 History mcg (50,000 unit) capsule ezetimibe 10 mg tablet (Zetia) 10 mg PO QAM 02/13/23 02/13/23 History propranolol 40 mg tablet 40 mg PO BID 02/13/23 02/13/23 History Allergies Allergy/AdvReac Type Severity Reaction Status Date / Time No Known Allergies Allergy Unknown Verified 10/22/19 11:18 Past Med/Surg History Medical History (Updated 02/13/23 @ 20:20 by Doroteo Rodrigues MD) Adhesive capsulitis of left shoulder Anxiety Chronic back pain COPD (chronic obstructive pulmonary disease) Depression Diabetes mellitus, type 2 niddm Essential tremor takes topamax daily Fibromyalgia Hyperlipidemia Hypothyroidism Kidney stones Migraine cluster migraines Osteoarthritis Post traumatic stress disorder Rupture of kidney right kidney (~s). no surgical intervention. currently working normal. Surgical History History of appendectomy History of arthroscopy of left shoulder (~05/2019) History of cholecystectomy History of colonoscopy History of cystoscopy with stents History of esophagogastroduodenoscopy (EGD) History of laparoscopy S/P BRANDIE-BSO Family History Uncle Family history of diabetes mellitus Grandmother (Paternal) Family history of diabetes mellitus Brother Heart disease Mother Heart disease Social History Smoking Status: Current every day smoker Tobacco Type: Cigarettes Second Hand Exposure: No; Do You Dip or Chew Tobacco: No; Hx Alcohol Use: No Hx Substance Use: No Preferred Language: Nigerien Communication Ability: Effective Account Resolution Specialist Required: No Beliefs That Will Affect Care: None Current Living Situation: Alone Feels Safe at Home: Yes Assistive Devices: None Physical Exam Vital Signs Vital Signs - 24 hr 02/13/23 15:55 02/13/23 16:44 02/13/23 16:54 Temperature 36.2 C L Temperature Source Temporal Artery Scan Pulse Rate 133 H Pulse Rate [Apical] 133 H Pulse Rate from SpO2 Sensor Respiratory Rate 20 20 Respiratory Effort / Characteristics Non-Labored Spontaneous Non-Labored Spontaneous Respiratory Depth Normal Normal Blood Pressure 129/70 Blood Pressure [Right Arm] 130/72 Blood Pressure Mean 89 Blood Pressure Mean [Right Arm] 91 Pulse Oximetry 95 98 98 Oxygen Delivery Method Room Air Room Air Room Air Sepsis Recent Fever Within 48 Hours No Sepsis New/Unexplained Change in Mental Status N/A Sepsis Action Taken by Nursing No Action Required 02/13/23 16:54 02/13/23 17:06 02/13/23 18:00 Temperature Temperature Source Pulse Rate 133 H 110 H Pulse Rate [Apical] 94 H Pulse Rate from SpO2 Sensor Respiratory Rate 20 18 Respiratory Effort / Characteristics Respiratory Depth Blood Pressure Blood Pressure [Right Arm] 143/70 H Blood Pressure Mean Blood Pressure Mean [Right Arm] 94 Pulse Oximetry 98 98 Oxygen Delivery Method Room Air Room Air Sepsis Recent Fever Within 48 Hours Sepsis New/Unexplained Change in Mental Status Sepsis Action Taken by Nursing 02/13/23 19:30 02/13/23 20:00 02/13/23 20:13 Temperature Temperature Source Pulse Rate 92 H Pulse Rate [Apical] Pulse Rate from SpO2 Sensor 94 H Respiratory Rate 18 Respiratory Effort / Characteristics Respiratory Depth Blood Pressure 144/75 H Blood Pressure [Right Arm] Blood Pressure Mean 113 Blood Pressure Mean [Right Arm] Pulse Oximetry 92 Oxygen Delivery Method Room Air Room Air Sepsis Recent Fever Within 48 Hours Sepsis New/Unexplained Change in Mental Status Sepsis Action Taken by Nursing Physical Exam GENERAL: She is oriented to person, place, and time. She appears well-developed and well-nourished. She does not appear distressed. HENT: Exam performed. -Head: Normocephalic and atraumatic. -Right Ear: External ear normal. No mastoid erythema -Left Ear: External ear normal. No mastoid erythema -Mouth/Throat: The oropharynx is clear and moist. No trismus in the jaw. No dental abscesses or uvula swelling. No oropharyngeal exudate or tonsillar abscesses. EYES: Conjunctivae and EOM are normal. Pupils are equal, round, and reactive to light. Right eye exhibits no discharge. Left eye exhibits no discharge. No scleral icterus. NECK: Normal range of motion. Neck supple. No JVD present. No tracheal deviation and normal range of motion present. CV: Tachycardic rate, regular rhythm, normal heart sounds and intact distal pulses. There is no peripheral edema. Palpable radial pulses bue. PULM/CHEST: Effort normal and breath sounds normal. No respiratory distress. No stridor. She has no wheezes. She has no rales. ABD: The abdomen is soft. There is no tenderness. There is no rebound, no guarding. MUSC/SKEL: Left lower extremity: There is an approximately 7 cm scabbed over wound with surrounding erythema over the left lower extremity. Palpable DP and PT pulse. No crepitus. Compartments of the lower extremity are soft. Right lower extremity: Within normal limits. NEURO: Motor and sensation grossly intact. PSYCH: She has a normal mood and affect. Behavior is normal. Judgment and thought content normal. Course Course 1655: The patient was evaluated in room C4. A complete history and physical exam was performed Cardiac monitoring: An order was placed for continuous cardiac monitoring. The monitor shows a rate of 110 with sinus rhythm interpreted by me Patient was seen during a time of extreme volume and extreme acuity in the emergency department. Nursing triage protocols were initiated and labs were drawn by protocol in the triage area. Patient's lactic acid is 4. 30 cc/kg bolus based off the patient's ideal body weight was ordered. Antibiotics will be ordered for concerning soft tissue skin infection. 1820: Vital signs stable. Patient's white blood cell count 10.44. Hemoglobin 16.2. Coagulation studies within normal limits. Electrolytes within normal limits. Procalcitonin 0.05. Chest x-ray negative. Tib-fib x-ray shows no evidence of osteomyelitis. Urinalysis shows possible infection. Rocephin ordered for the patient. [facility]. Administered Medications Discontinued Medications Sodium Chloride (Nss 1000ml) 2,000 mls @ 999 mls/hr IV .Q2H1M ONE Stop: 02/13/23 18:56 Last Infusion: 02/13/23 18:56 Dose: 0 mls/hr Documented By: Admin: 02/13/23 17:02 Dose: 999 mls/hr Documented By: LYDIA Vancomycin HCl 2,000 mg/ (Sodium Chloride) 540 mls @ 200 mls/hr IV NOW ONE Stop: 02/13/23 19:55 Last Admin: 02/13/23 17:58 Dose: 200 mls/hr Documented By: LYDIA Ceftriaxone Sodium (Rocephin) 2,000 mg in 70 mls @ 140 mls/hr IV NOW STA Stop: 02/13/23 18:13 Last Infusion: 02/13/23 18:56 Dose: 0 mls/hr Documented By: Admin: 02/13/23 17:52 Dose: 140 mls/hr Documented By: LYDIA Ketorolac Tromethamine (Ketorolac Tromethamine 15 Mg/Ml Vial) 15 mg IV NOW STA Stop: 02/13/23 18:05 Last Admin: 02/13/23 18:09 Dose: 15 mg Documented By: LYDIA Critical Care Time Critical Care Time: Yes Total Critical Care Time: 57 I have personally spent greater than 57 minutes of critical care time in the direct management of this patient. This includes bedside care, interpretation of diagnostic studies, and testing, discussion with consultants, patient, and family members, and other required patient management activities. This 57 minutes is in excess of all separately billable procedures. Medical Decision Making Laboratory Data Attestation: I reviewed the patient's lab results. 02/13/23 16:24 02/13/23 16:24 Lab Results 02/13/23 02/13/23 02/13/23 Range/Units 16:14 16:24 16:24 WBC 10.44 (4.8-10.8) K/ul RBC 5.88 H (4.20-5.40) M/uL Hgb 16.2 H (12.0-16.0) g/dl Hct 49.8 H (37.0-47.0) % MCV 84.7 (80.0-100.0) fL MCH 27.6 (25.0-34.0) pg MCHC 32.5 (32.0-36.0) g/dL RDW Std Deviation 48.4 H (36.4-46.3) fL RDW Coeff of Stalin 16.2 H (11.5-14.5) % Plt Count 424 H (130-400) K/uL MPV 9.3 L (9.4-12.4) fL Immature Gran % (Auto) 0.3 % Neut % (Auto) 81.7 % Lymph % (Auto) 11.8 % Brantley % (Auto) 5.0 % Eos % (Auto) 0.8 % Baso % (Auto) 0.4 % Neut # (Auto) 8.54 H (1.40-6.50) K/uL Lymph # (Auto) 1.23 (1.2-3.4) K/uL Brantley # (Auto) 0.52 (0.11-0.59) K/uL Eos # (Auto) 0.08 (0-0.50) K/uL Baso # (Auto) 0.04 (0-0.2) K/uL Immature Gran # (Auto) 0.03 (0.01-0.20) K/uL PT (9.0-12.0) Seconds INR (0.9-1.1) APTT (21.0-31.0) Seconds PTT Ratio Sodium (136-145) mmol/L Potassium (3.5-5.1) mmol/L Chloride (98-107) mmol/L Carbon Dioxide (21-32) mmol/L Anion Gap (3-11) BUN (6-23) mg/dl Creatinine (0.6-1.2) mg/dl Est Cr Clr Drug Dosing ml/min Est GFR ( Amer) ml/min Est GFR (Non-Af Amer) ml/min BUN/Creatinine Ratio (10-20) Glucose (70-99(Fasting)) mg/dl Lactate 4.0 H* (0.4-2.0) mmol/L Calcium (8.6-10.3) mg/dl Magnesium (1.7-2.4) mg/dl Total Bilirubin (0.2-1.0) mg/dl AST (13-39) U/L ALT (7-52) U/L Alkaline Phosphatase (34-104) U/L Total Protein (6.0-8.3) gm/dl Albumin (3.4-5.0) gm/dl Globulin (2.5-4.0) gm/dl Albumin/Globulin Ratio (0.9-2) Procalcitonin (0-0.5) ng/ml Urine Color Yellow Urine Appearance Cloudy A (Clear) Urine pH 5.5 (4.5-7.5) Ur Specific [place] >= 1.030 (1.000-1.030) Urine Protein 3+ H (Negative) Urine Glucose (UA) Negative (Negative) Urine Ketones Trace H (Negative) Urine Blood Trace-intact H (Negative) Urine Nitrite Negative (Negative) Urine Bilirubin 2+ H (Negative) Urine Urobilinogen Negative (Negative) Ur Leukocyte Esterase Negative (Negative) Urine RBC 0-4 (0-4) /hpf Urine WBC 5-10 H (0-5) /hpf Ur Epithelial Cells >30 H (0-5) /lpf Urine Bacteria 2+ H (Negative) SARS-CoV-2, RNA, NAAT (NEGATIVE) 02/13/23 02/13/23 02/13/23 Range/Units 16:24 16:24 16:24 WBC (4.8-10.8) K/ul RBC (4.20-5.40) M/uL Hgb (12.0-16.0) g/dl Hct (37.0-47.0) % MCV (80.0-100.0) fL MCH (25.0-34.0) pg MCHC (32.0-36.0) g/dL RDW Std Deviation (36.4-46.3) fL RDW Coeff of Stalin (11.5-14.5) % Plt Count (130-400) K/uL MPV (9.4-12.4) fL Immature Gran % (Auto) % Neut % (Auto) % Lymph % (Auto) % Brantley % (Auto) % Eos % (Auto) % Baso % (Auto) % Neut # (Auto) (1.40-6.50) K/uL Lymph # (Auto) (1.2-3.4) K/uL [place]ley # (Auto) (0.11-0.59) K/uL Eos # (Auto) (0-0.50) K/uL Baso # (Auto) (0-0.2) K/uL Immature Gran # (Auto) (0.01-0.20) K/uL PT 10.9 (9.0-12.0) Seconds INR 1.0 (0.9-1.1) APTT 29.6 (21.0-31.0) Seconds PTT Ratio 1.0 Sodium 137 (136-145) mmol/L Potassium 3.8 (3.5-5.1) mmol/L Chloride 103 (98-107) mmol/L Carbon Dioxide 21 (21-32) mmol/L Anion Gap 13 H (3-11) BUN 10 (6-23) mg/dl Creatinine 1.04 (0.6-1.2) mg/dl Est Cr Clr Drug Dosing 72.4 ml/min Est GFR ( Amer) 69.1 ml/min Est GFR (Non-Af Amer) 59.6 ml/min BUN/Creatinine Ratio 9.6 L (10-20) Glucose 118 H (70-99(Fasting)) mg/dl Lactate (0.4-2.0) mmol/L Calcium 10.2 (8.6-10.3) mg/dl Magnesium 1.9 (1.7-2.4) mg/dl Total Bilirubin 0.5 (0.2-1.0) mg/dl AST 25 (13-39) U/L ALT 27 (7-52) U/L Alkaline Phosphatase 145 H (34-104) U/L Total Protein 9.4 H (6.0-8.3) gm/dl Albumin 4.7 (3.4-5.0) gm/dl Globulin 4.7 H (2.5-4.0) gm/dl Albumin/Globulin Ratio 1.0 (0.9-2) Procalcitonin 0.05 (0-0.5) ng/ml Urine Color Urine Appearance (Clear) Urine pH (4.5-7.5) Ur Specific [place] (1.000-1.030) Urine Protein (Negative) Urine Glucose (UA) (Negative) Urine Ketones (Negative) Urine Blood (Negative) Urine Nitrite (Negative) Urine Bilirubin (Negative) Urine Urobilinogen (Negative) Ur Leukocyte Esterase (Negative) Urine RBC (0-4) /hpf Urine WBC (0-5) /hpf Ur Epithelial Cells (0-5) /lpf Urine Bacteria (Negative) SARS-CoV-2, RNA, NAAT (NEGATIVE) 02/13/23 02/13/23 Range/Units 17:54 18:22 WBC (4.8-10.8) K/ul RBC (4.20-5.40) M/uL Hgb (12.0-16.0) g/dl Hct (37.0-47.0) % MCV (80.0-100.0) fL MCH (25.0-34.0) pg MCHC (32.0-36.0) g/dL RDW Std Deviation (36.4-46.3) fL RDW Coeff of Stalin (11.5-14.5) % Plt Count (130-400) K/uL MPV (9.4-12.4) fL Immature Gran % (Auto) % Neut % (Auto) % Lymph % (Auto) % [place] % (Auto) % Eos % (Auto) % Baso % (Auto) % Neut # (Auto) (1.40-6.50) K/uL Lymph # (Auto) (1.2-3.4) K/uL [place] # (Auto) (0.11-0.59) K/uL Eos # (Auto) (0-0.50) K/uL Baso # (Auto) (0-0.2) K/uL Immature Gran # (Auto) (0.01-0.20) K/uL PT (9.0-12.0) Seconds INR (0.9-1.1) APTT (21.0-31.0) Seconds PTT Ratio Sodium (136-145) mmol/L Potassium (3.5-5.1) mmol/L Chloride (98-107) mmol/L Carbon Dioxide (21-32) mmol/L Anion Gap (3-11) BUN (6-23) mg/dl Creatinine (0.6-1.2) mg/dl Est Cr Clr Drug Dosing ml/min Est GFR ( Amer) ml/min Est GFR (Non-Af Amer) ml/min BUN/Creatinine Ratio (10-20) Glucose (70-99(Fasting)) mg/dl Lactate 1.2 (0.4-2.0) mmol/L Calcium (8.6-10.3) mg/dl Magnesium (1.7-2.4) mg/dl Total Bilirubin (0.2-1.0) mg/dl AST (13-39) U/L ALT (7-52) U/L Alkaline Phosphatase (34-104) U/L Total Protein (6.0-8.3) gm/dl Albumin (3.4-5.0) gm/dl Globulin (2.5-4.0) gm/dl Albumin/Globulin Ratio (0.9-2) Procalcitonin (0-0.5) ng/ml Urine Color Urine Appearance (Clear) Urine pH (4.5-7.5) Ur Specific [place] (1.000-1.030) Urine Protein (Negative) Urine Glucose (UA) (Negative) Urine Ketones (Negative) Urine Blood (Negative) Urine Nitrite (Negative) Urine Bilirubin (Negative) Urine Urobilinogen (Negative) Ur Leukocyte Esterase (Negative) Urine RBC (0-4) /hpf Urine WBC (0-5) /hpf Ur Epithelial Cells (0-5) /lpf Urine Bacteria (Negative) SARS-CoV-2, RNA, NAAT NEGATIVE (NEGATIVE) Imaging Data Attestation: I personally reviewed and interpreted this imaging study as follows: My Impression: Chest x-ray: Chest x-ray negative. Airway clear. No pneumothorax. No consolidation. No cardiomegaly or cephalization.. No free air under the diaphragm. No fractures of the skeletal structures. Left tib-fib: No fracture. Radiologist's Impression: Chest X-Ray 02/13/23 16:00 XR chest 1V portable CLINICAL HISTORY: Sepsis. COMPARISON STUDY: Chest CT and chest radiograph September 08, 2019. FINDINGS: Lung volumes are normal. There is no consolidation to suggest pneumonia. Minimal linear left basilar density favors atelectasis or scarring. There is no pneumothorax or pleural effusion. Cardiac size is normal. Mediastinal contours are normal. There is no evidence for pulmonary edema. IMPRESSION: No acute cardiopulmonary findings. ACT 112: Negative or not required by law. Electronically signed by: Elier Michael M.D. 02/13/2023 5:19 PM Tibia/Fibula X-Ray 02/13/23 17:14 XR tibia fibula LT 2V CLINICAL HISTORY: wound COMPARISON: None FINDINGS: A distal left fibular internal fixation with plate and screws is noted. Hardware is intact. There is no acute fracture within the left tibia or fibula. An anterior left lower leg wound is noted. There is no evidence for acute osteomyelitis. No radiopaque foreign bodies are identified. IMPRESSION: 1. Anterior left lower leg wound. No acute fracture, radiopaque foreign body or evidence for acute osteomyelitis within the left tibia or fibula. 2. Status post distal left fibular internal fixation. ACT 112: Negative or not required by law. Electronically signed by: Elier Michael M.D. 02/13/2023 6:04 PM ECG Data Attestation: I personally reviewed and interpreted this ECG as follows: Rate (beats per minute): 127 Rhythm: + sinus tachycardia ECG Intervals/blocks: + Normal QRS, + Normal [place] and + Normal QT-c ECG ST segments: + Normal ST segments [facility] Narrative 1656: The patient was evaluated in room C4. A complete history and physical exam was performed Cardiac monitoring: An order was placed for continuous cardiac monitoring. The monitor shows a rate of 110 with sinus rhythm interpreted by me Patient was seen during a time of extreme volume and extreme acuity in the emergency department. Nursing triage protocols were initiated and labs were drawn by protocol in the triage area. Patient's lactic acid is 4. 30 cc/kg bolus based off the patient's ideal body weight was ordered. Antibiotics will be ordered for concerning soft tissue skin infection. 1820: Vital signs stable. Patient's white blood cell count 10.44. Hemoglobin 16.2. Coagulation studies within normal limits. Electrolytes within normal limits. Procalcitonin 0.05. Chest x-ray negative. Tib-fib x-ray shows no evidence of osteomyelitis. Urinalysis shows possible infection. Rocephin ordered for the patient. [facility] Impression & Plan Cellulitis, UTI (urinary tract infection), Sepsis Discharge Plan Visit Data Chief Complaint: Leg Injury/Pain Stated Complaint: GASH LEFT LEG ED Provider: Doroteo Rodrigues Discharge Problem: Cellulitis, UTI (urinary tract infection), Sepsis Patient Disposition: Admitted As Inpatient Discharge Instructions Interventions: ED Discharge Assessment Last Done: 02/13/23 20:13 Forms Stand Alone Forms: Imagry Prescriptions Prescriptions: No Action omeprazole 40 mg capsule,delayed release(DR/EC) 40 mg PO BID levothyroxine 75 mcg tablet 75 mcg PO QAM dicyclomine 20 mg tablet 20 mg PO QID PRN (Reason: Abdominal Pain) duloxetine [Cymbalta] 60 mg Capsule,Delayed Release(Dr/Ec) 60 mg PO QAM Victoza 2-Sonny 0.6 mg/0.1 mL (18 mg/3 mL) Pen Injector 1.6 mg subcut QAM Rx Instructions: ONE INJECTION DAILY magnesium oxide 400 mg magnesium capsule 400 mg PO HS meclizine 25 mg tablet 25 mg PO TID PRN (Reason: Dizziness) ammonium lactate 12 % cream 1 applic TOPICAL BID PRN (Reason: Dry Skin) albuterol sulfate 90 mcg/actuation HFA aerosol inhaler 2 puff INHALATION Q4H PRN (Reason: Wheezing) Bevespi Aerosphere 9-4.8 mcg HFA aerosol inhaler 2 puff INHALATION BID atorvastatin 40 mg Tablet 40 mg PO QAM Qty: 30 1RF aspirin 81 mg Tablet,Delayed Release (Dr/Ec) 81 mg PO QAM Qty: 90 1RF ibuprofen 600 mg Tablet 600 mg PO TID PRN (Reason: headache) Qty: 30 0RF riboflavin (vitamin B2) 400 mg tablet 400 mg PO DAILY PRN (Reason: headache) Qty: 30 0RF naproxen 500 mg tablet 500 mg PO Q12H Qty: 14 0RF ondansetron 4 mg tablet,disintegrating 4 mg PO Q6H PRN (Reason: nausea and vomiting) Qty: 14 0RF bupropion HCl 150 mg tablet sustained-release 12 hr 150 mg PO DIRECTED Rx Instructions: per pharmacy they have bid instead of daily propranolol 40 mg tablet 40 mg PO BID ezetimibe [Zetia] 10 mg tablet 10 mg PO QAM ergocalciferol (vitamin D2) 1,250 mcg (50,000 unit) capsule 1,250 mcg PO WK Referrals Referrals: Joaquín Potter MD [Primary Care Provider] -
[2023-02-13] MEDS ORDERED: POLYETHYLENE (MIRALAX) 17 GM PACK PO PRN (21:01)
[2023-02-13] MEDS ORDERED: ACETAMINOPHEN 325 MG TAB PO PRN (21:01)
[2023-02-13] MEDS ORDERED: NON-FORMULARY MEDICATION (Riboflavin (Vitamin B2) 400 mg tablet) PO PRN (21:01)
[2023-02-13] MEDS ORDERED: DICYCLOMINE HCL 20 MG TAB PO PRN (21:01)
[2023-02-13] MEDS ORDERED: MECLIZINE HCL 25 MG TAB PO PRN (21:01)
[2023-02-13] MEDS ORDERED: GLUCOSE 10 TAB/TUBE PO PRN (21:01)
[2023-02-13] MEDS ORDERED: ONDANSETRON INJ 2 MG/ML 2 ML VIAL IV PRN (21:01)
[2023-02-13] MEDS ORDERED: ALBUTEROL HFA 8 GM INHALER INH PRN (21:01)
[2023-02-13] MEDS ORDERED: DEXTROSE 50% 50 ML SYRINGE IV PRN (21:01)
[2023-02-13] MEDS ORDERED: GLUCAGON FOR INJ 1 MG VIAL SQ PRN (21:01)
[2023-02-13] MEDS ORDERED: CARBOHYDRATES FOR HYPOGLYCEMIA PO PRN (21:01)
[2023-02-13] MEDS ORDERED: GLUCOSE 40% GEL 15 GM TUBE PO PRN (21:01)
[2023-02-13] MEDS: SODIUM CHLORIDE 0.9% 1000ML 1,000 ML IV SCH (21:26)
[2023-02-13 21:29] LABS: Basophils # (auto) 0.02 K/uL (0-0.2); Basophils % (auto) 0.2 %; Eosinophils # (auto) 0.03 K/uL (0-0.50); Eosinophils % (auto) 0.3 %; Hematocrit (blood only) 41.4 % (37.0-47.0); Hemoglobin 13.5 g/dl (12.0-16.0); Immature Granulocytes # (auto) 0.03 K/uL (0.01-0.20); Immature Granulocytes % (auto) 0.3 %; Lymphocytes # (auto) 1.42 K/uL (1.2-3.4); Mean Corpuscular Hemoglobin 27.6 pg (25.0-34.0); Mean Corpuscular Hgb Conc 32.6 g/dL (32.0-36.0); Mean Corpuscular Volume 84.7 fL (80.0-100.0); Mean Platelet Volume 9.1 fL (9.4-12.4); Monocytes # (auto) 0.41 K/uL (0.11-0.59); Monocytes % (auto) 4.6 %; Neutrophils # (auto) 6.96 K/uL (1.40-6.50); Neutrophils % (auto) 78.6 %; Platelet Count 316 K/uL (130-400); RDW Coefficient of Variation 15.7 % (11.5-14.5); RDW Standard Deviation 48.1 fL (36.4-46.3); Red Blood Count 4.89 M/uL (4.20-5.40); White Blood Count 8.87 K/ul (4.8-10.8)
[2023-02-13] MEDS: INSULIN ASPART PER UNIT CHARGE SC SCH (21:50)
[2023-02-13] MEDS: oxyCODONE HCL IR 5 MG TAB (IMMEDIATE RELEASE) PO PRN (22:16)
[2023-02-13] MEDS: buPROPion SR 150 MG TABCR PO SCH (22:16)
[2023-02-13] MEDS: PROPRANOLOL HCL 20 MG TAB PO SCH (22:17)
[2023-02-13] MEDS: MAGNESIUM OXIDE 400 MG TAB PO SCH (22:18)
[2023-02-13] MEDS: PANTOprazole 40 MG TAB PO SCH (22:19)
[2023-02-13] MEDS: PIPERACILLIN/TAZOBACTAM 4.5 GM in DEXTROSE 5% 100 ML IV SCH (22:22)
--- NOTE | 2023-02-14 01:31 | History & Physical Report ---
Date of Service February 13, 2023 Assessment & Plan (1) Sepsis: Plan: 57-year-old female presents with left lower extremity wound, UTI and sepsis. Sepsis left lower extremity wound Presented with lactic acid of 4 and tachycardia Lactic acid improved IV Vanco and Zosyn and fluids Wound care Close monitor UTI Antibiotics as above We will follow the cultures Diabetes Insulin sliding scale We will follow blood sugars and HbA1c levels history of COPD Home inhalers Depression anxiety Bupropion and Cymbalta Essential tremors Metoprolol Hypothyroidism on Synthyroid Hyperlipidemia on Zetia and statin Fibromyalgia and on Cymbalta DVT prophylaxis Lovenox Disposition med/telemetry Full code Admission and Anticipated Discharge Date Admission Date: February 13, 2023 History of Present Illness Chief Complaint: Left lower extremity wound and sepsis Primary Care Provider: Joaquín Potter MD 57-year-old female with past medical significant for type 2 diabetes, hypothyroidism, COPD, morbid obesity, GERD, fibromyalgia, essential tremor, complicated migraine, depression and anxiety presents with left lower extremity wound. Patient states couple of weeks ago she injured her left leg while getting down the porch. He does not healing. Lately developed lot of pain and not able to put the weight on the leg and this reason she came to the ER today. No drainage seen. No fevers. No chest pain or shortness of breath. Today she developed nausea and diarrhea had 4 episodes of diarrhea today. No abdominal pain. No headache. No blurred visions or earache runny nose or sore throat. And resting comfortably and hemodynamic stable Allergies Allergy/AdvReac Type Severity Reaction Status Date / Time No Known Allergies Allergy Unknown Verified 10/22/19 11:18 Home Medications Medication Instructions Recorded Confirmed Type dicyclomine 20 mg tablet 20 mg PO QID PRN Abdominal Pain 03/21/19 02/13/23 History duloxetine 60 mg capsule,delayed 60 mg PO QAM 03/21/19 02/13/23 History release (Cymbalta) levothyroxine 75 mcg tablet 75 mcg PO QAM 03/21/19 02/13/23 History liraglutide 0.6 mg/0.1 mL (18 mg/3 1.6 mg subcut QAM 03/21/19 02/13/23 History mL) subcutaneous pen injector ([employer] 2-Sonny) magnesium oxide 400 mg PO HS 03/21/19 02/13/23 History omeprazole 40 mg capsule,delayed 40 mg PO BID 03/21/19 02/13/23 History release albuterol sulfate 90 mcg/actuation 2 puff inhalation Q4H PRN Wheezing 09/08/19 02/13/23 History aerosol inhaler ammonium lactate 12 % topical cream 1 applic topical BID PRN Dry Skin 09/08/19 02/13/23 History glycopyrrolate 9 mcg-formoterol 2 puff inhalation BID 09/08/19 02/13/23 History 4.8 mcg HFA aerosol inhaler ([employer]evespi Aerosphere) meclizine 25 mg tablet 25 mg PO TID PRN Dizziness 09/08/19 02/13/23 History aspirin 81 mg tablet,delayed 81 mg PO QAM #90 tabs 09/10/19 02/13/23 Rx release atorvastatin 40 mg tablet 40 mg PO QAM #30 tabs 09/10/19 02/13/23 Rx riboflavin (vitamin B2) 400 mg 400 mg PO DAILY PRN headache #30 09/10/19 02/13/23 Rx tablet tabs ondansetron 4 mg disintegrating 4 mg PO Q6H PRN nausea and 10/22/19 02/13/23 Rx tablet vomiting #14 tabs bupropion HCl 150 mg tablet,12 hr 150 mg PO DIRECTED 02/13/23 02/13/23 History sustained-release ergocalciferol (vitamin D2) 1,250 1,250 mcg PO WK 02/13/23 02/13/23 History mcg (50,000 unit) capsule ezetimibe 10 mg tablet (Zetia) 10 mg PO QAM 02/13/23 02/13/23 History propranolol 40 mg tablet 40 mg PO BID 02/13/23 02/13/23 History Past Med/Surg History Medical History Adhesive capsulitis of left shoulder Anxiety Chronic back pain COPD (chronic obstructive pulmonary disease) Depression Diabetes mellitus, type 2 niddm Essential tremor takes topamax daily Fibromyalgia Hyperlipidemia Hypothyroidism Kidney stones Migraine cluster migraines Osteoarthritis Post traumatic stress disorder 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 no surgical intervention. currently working normal. Surgical History History of appendectomy History of arthroscopy of left shoulder (~05/2019) History of cholecystectomy History of colonoscopy History of cystoscopy with stents History of esophagogastroduodenoscopy (EGD) History of laparoscopy S/P BRANDIE-BSO Family History Uncle Family history of diabetes mellitus Grandmother (Paternal) Family history of diabetes mellitus Brother Heart disease Mother Heart disease Social History Smoking Status: Current every day smoker Tobacco Type: Cigarettes Cigarettes Per Day: 2; Second Hand Exposure: No; Do You Dip or Chew Tobacco: No; Hx Alcohol Use: No Hx Substance Use: No Preferred Language: Kyrgyz Communication Ability: Effective Security Intelligence Analyst Required: No Beliefs That Will Affect Care: None Current Living Situation: Alone Feels Safe at Home: Yes Safety Concerns: Feels Safe At This Time Assistive Devices: Denture - Upper, Denture - Lower and Glasses Review of Systems Review of Systems: All systems reviewed & are unremarkable except as noted in Subjective Physical Exam Physical Exam: General- Not in distress Head- atraumatic Eyes- PERRL. ENT- oropharynx clear Neck- supple, no JVD. Lungs- clear to auscultation and percussion, no added sounds Heart- regular rate and rhythm; no murmur, no gallop. Abdomen- normal bowel sounds, soft, nontender, no distension Extremities- no pretibial edema, wound seen on left goins with blackish discoloration , doesn't seem deep. Neuro- alert, oriented x 3; PERRL, no facial palsy; no dysarthria; moves extremities. Skin- warm & dry Results & Data Results & Data Vital Signs (Past 12 Hours) Vital Signs Temp Pulse Pulse Resp BP BP Pulse Ox 02/13/23 20:13 02/13/23 20:00 92 H 18 92 02/13/23 19:30 144/75 H 02/13/23 18:00 94 H 18 143/70 H 98 02/13/23 17:06 110 H 02/13/23 16:54 133 H 20 98 02/13/23 16:54 133 H 20 130/72 98 02/13/23 16:44 98 02/13/23 15:55 36.2 C L 133 H 20 129/70 95 O2 Del Method 02/13/23 20:13 Room Air 02/13/23 20:00 Room Air 02/13/23 19:30 02/13/23 18:00 Room Air 02/13/23 17:06 02/13/23 16:54 Room Air 02/13/23 16:54 Room Air 02/13/23 16:44 Room Air 02/13/23 15:55 Room Air Diagnostic Findings Laboratory Results WBC 8.87 K/ul (4.8-10.8) 02/13/23 21:18 RBC 4.89 M/uL (4.20-5.40) 02/13/23 21:18 Hgb 13.5 g/dl (12.0-16.0) 02/13/23 21:18 Hct 41.4 % (37.0-47.0) 02/13/23 21:18 MCV 84.7 fL (80.0-100.0) 02/13/23 21:18 MCH 27.6 pg (25.0-34.0) 02/13/23 21:18 MCHC 32.6 g/dL (32.0-36.0) 02/13/23 21:18 RDW Std Deviation 48.1 fL (36.4-46.3) H 02/13/23 21:18 RDW Coeff of Stalin 15.7 % (11.5-14.5) H 02/13/23 21:18 Plt Count 316 K/uL (130-400) 02/13/23 21:18 MPV 9.1 fL (9.4-12.4) L 02/13/23 21:18 Immature Gran % (Auto) 0.3 % 02/13/23 21:18 Neut % (Auto) 78.6 % 02/13/23 21:18 Lymph % (Auto) 16.0 % 02/13/23 21:18 [place] % (Auto) 4.6 % 02/13/23 21:18 Eos % (Auto) 0.3 % 02/13/23 21:18 Baso % (Auto) 0.2 % 02/13/23 21:18 Neut # (Auto) 6.96 K/uL (1.40-6.50) H 02/13/23 21:18 Lymph # (Auto) 1.42 K/uL (1.2-3.4) 02/13/23 21:18 [place] # (Auto) 0.41 K/uL (0.11-0.59) 02/13/23 21:18 Eos # (Auto) 0.03 K/uL (0-0.50) 02/13/23 21:18 Baso # (Auto) 0.02 K/uL (0-0.2) 02/13/23 21:18 Immature Gran # (Auto) 0.03 K/uL (0.01-0.20) 02/13/23 21:18 PT 10.9 Seconds (9.0-12.0) 02/13/23 16:24 INR 1.0 (0.9-1.1) 02/13/23 16:24 APTT 29.6 Seconds (21.0-31.0) 02/13/23 16:24 PTT Ratio 1.0 02/13/23 16:24 Sodium 137 mmol/L (136-145) 02/13/23 16:24 Potassium 3.8 mmol/L (3.5-5.1) 02/13/23 16:24 Chloride 103 mmol/L (98-107) 02/13/23 16:24 Carbon Dioxide 21 mmol/L (21-32) 02/13/23 16:24 Anion Gap 13 (3-11) H 02/13/23 16:24 BUN 10 mg/dl (6-23) 02/13/23 16:24 Creatinine 1.04 mg/dl (0.6-1.2) 02/13/23 16:24 Est Cr Clr Drug Dosing 72.4 ml/min 02/13/23 16:24 Est GFR ( Amer) 69.1 ml/min 02/13/23 16:24 Est GFR (Non-Af Amer) 59.6 ml/min 02/13/23 16:24 BUN/Creatinine Ratio 9.6 (10-20) L 02/13/23 16:24 Glucose 118 mg/dl (70-99(Fasting)) H 02/13/23 16:24 POC Glucose 73 mg/dl (70-99) 02/13/23 21:34 Lactate 1.2 mmol/L (0.4-2.0) 02/13/23 18:22 Calcium 10.2 mg/dl (8.6-10.3) 02/13/23 16:24 Magnesium 1.9 mg/dl (1.7-2.4) 02/13/23 16:24 Total Bilirubin 0.5 mg/dl (0.2-1.0) 02/13/23 16:24 AST 25 U/L (13-39) 02/13/23 16:24 ALT 27 U/L (7-52) 02/13/23 16:24 Alkaline Phosphatase 145 U/L (34-104) H 02/13/23 16:24 Total Protein 9.4 gm/dl (6.0-8.3) H 02/13/23 16:24 Albumin 4.7 gm/dl (3.4-5.0) 02/13/23 16:24 Globulin 4.7 gm/dl (2.5-4.0) H 02/13/23 16:24 Albumin/Globulin Ratio 1.0 (0.9-2) 02/13/23 16:24 Procalcitonin 0.05 ng/ml (0-0.5) 02/13/23 16:24 Urine Color Yellow 02/13/23 16:14 Urine Appearance Cloudy (Clear) A 02/13/23 16:14 Urine pH 5.5 (4.5-7.5) 02/13/23 16:14 Ur Specific [place] >= 1.030 (1.000-1.030) 02/13/23 16:14 Urine Protein 3+ (Negative) H 02/13/23 16:14 Urine Glucose (UA) Negative (Negative) 02/13/23 16:14 Urine Ketones Trace (Negative) H 02/13/23 16:14 Urine Blood Trace-intact (Negative) H 02/13/23 16:14 Urine Nitrite Negative (Negative) 02/13/23 16:14 Urine Bilirubin 2+ (Negative) H 02/13/23 16:14 Urine Urobilinogen Negative (Negative) 02/13/23 16:14 Ur Leukocyte Esterase Negative (Negative) 02/13/23 16:14 Urine RBC 0-4 /hpf (0-4) 02/13/23 16:14 Urine WBC 5-10 /hpf (0-5) H 02/13/23 16:14 Ur Epithelial Cells >30 /lpf (0-5) H 02/13/23 16:14 Urine Bacteria 2+ (Negative) H 02/13/23 16:14 SARS-CoV-2, RNA, NAAT NEGATIVE (NEGATIVE) 02/13/23 17:54 Impressions Chest X-Ray 02/13/23 16:00 XR chest 1V portable CLINICAL HISTORY: Sepsis. COMPARISON STUDY: Chest CT and chest radiograph September 08, 2019. FINDINGS: Lung volumes are normal. There is no consolidation to suggest pneum onia. Minimal linear left basilar density favors atelectasis or scarring. There is no pneumothorax or pleural effusion. Cardiac size is normal. Mediastinal contours are normal. There is no evidence for pulmonary edema. IMPRESSION: No acute cardiopulmonary findings. ACT 112: Negative or not required by law. Electronically signed by: Elier Michael M.D. 02/13/2023 5:19 PM Tibia/Fibula X-Ray 02/13/23 17:14 XR tibia fibula LT 2V CLINICAL HISTORY: wound COMPARISON: None FINDINGS: A distal left fibular internal fixation with plate and screws is not ed. Hardware is intact. There is no acute fracture within the left tibia or fibula. An anterior left lower leg wound is noted. There is no evidence for acute osteomyelitis. No radiopaque foreign bodies are identified. IMPRESSION: 1. Anterior left lower leg wound. No acute fracture, radiopaque foreign body or evidence for acute osteomyelitis within the left tibia or fibula. 2. Status post distal left fibular internal fixation. ACT 112: Negative or not required by law. Electronically signed by: Elier Michael M.D. 02/13/2023 6:04 PM (1) Sepsis Sepsis acute organ dysfunction status: unspecified Sepsis type: sepsis due to unspecified organism Qualified Code(s): A41.9 - Sepsis, unspecified organism
[2023-02-14] MEDS: VANCOMYCIN HCL 1,000 MG in SODIUM CHLORIDE 0.9% 250 ML IV SCH ×2 (02:01→12:45)
[2023-02-14 03:08] LABS: Cdiff Toxin B Gene (2yr or >) Positive Cdiff Gene (Neg)
[2023-02-14 03:09] LABS: Adenovirus F 40/41 PCR Not Detected (NotDetected); Astrovirus PCR Not Detected (NotDetected); Campylobacter PCR Not Detected (NotDetected); Cdiff Antigen Positive; Cdiff Toxin A+B Negative Cdiff Toxin (Negative); Cryptosporidium PCR Not Detected (NotDetected); Cyclospora cayetanensis PCR Not Detected (NotDetected); Entamoeba histolytica PCR Not Detected (NotDetected); Enteroaggregative E.coli(EAEC) Not Detected (NotDetected); Enteropathogenic E.coli (EPEC) Not Detected (NotDetected); Enterotoxigenic E.coli (ETEC) Not Detected (NotDetected); Giardia lamblia PCR Not Detected (NotDetected); Norovirus GI/GII PCR Not Detected (NotDetected); Plesiomonas shigelloides PCR Not Detected (NotDetected); Rotavirus A PCR Not Detected (NotDetected); Salmonella PCR Not Detected (NotDetected); Sapovirus PCR Not Detected (NotDetected); Shiga-like Toxin E.coli (STEC) Not Detected (NotDetected); Shigella/Enteroinvasive E.coli Not Detected (NotDetected); Vibrio cholerae PCR Not Detected (NotDetected); Vibrio species PCR Not Detected (NotDetected); Yersinia enterocolitica PCR Not Detected (NotDetected)
[2023-02-14] MEDS: SODIUM CHLORIDE 0.9% 1000ML 1,000 ML IV SCH ×2 (05:34→12:47)
[2023-02-14] MEDS: PIPERACILLIN/TAZOBACTAM 4.5 GM in DEXTROSE 5% 100 ML IV SCH ×3 (05:34→20:26)
[2023-02-14] MEDS: LEVOTHYROXINE SODIUM 75 MCG TABLET PO SCH (05:35)
[2023-02-14 07:43] LABS: Basophils # (auto) 0.04 K/uL (0-0.2); Basophils % (auto) 0.5 %; Eosinophils # (auto) 0.09 K/uL (0-0.50); Eosinophils % (auto) 1.2 %; Hematocrit (blood only) 38.2 % (37.0-47.0); Hemoglobin 12.3 g/dl (12.0-16.0); Immature Granulocytes # (auto) 0.03 K/uL (0.01-0.20); Immature Granulocytes % (auto) 0.4 %; Lymphocytes # (auto) 1.27 K/uL (1.2-3.4); Mean Corpuscular Hemoglobin 27.2 pg (25.0-34.0); Mean Corpuscular Hgb Conc 32.2 g/dL (32.0-36.0); Mean Corpuscular Volume 84.5 fL (80.0-100.0); Mean Platelet Volume 9.3 fL (9.4-12.4); Monocytes # (auto) 0.58 K/uL (0.11-0.59); Monocytes % (auto) 7.7 %; Neutrophils # (auto) 5.48 K/uL (1.40-6.50); Neutrophils % (auto) 73.2 %; Platelet Count 278 K/uL (130-400); RDW Standard Deviation 49.6 fL (36.4-46.3); Red Blood Count 4.52 M/uL (4.20-5.40); White Blood Count 7.49 K/ul (4.8-10.8)
[2023-02-14] MEDS: oxyCODONE HCL IR 5 MG TAB (IMMEDIATE RELEASE) PO PRN ×2 (07:45→16:04)
[2023-02-14] MEDS: PANTOprazole 40 MG TAB PO SCH ×2 (07:46→20:22)
[2023-02-14] MEDS: ATORVASTATIN 40 MG TAB PO SCH (07:46)
[2023-02-14] MEDS: EZETIMIBE 10 MG TABLET PO SCH (07:46)
[2023-02-14] MEDS: DULoxetine HCL 60 MG CAP PO SCH (07:46)
[2023-02-14] MEDS: buPROPion SR 150 MG TABCR PO SCH ×2 (07:47→20:23)
[2023-02-14] MEDS: ASPIRIN 81 MG ECTAB PO SCH (07:47)
[2023-02-14] MEDS: PROPRANOLOL HCL 20 MG TAB PO SCH ×2 (07:47→20:24)
[2023-02-14] MEDS: UMECLIDINIUM/VILANTEROL 62.5/25MCG 7 PUFFS/INHALER INH SCH (07:49)
[2023-02-14 08:01] LABS: BUN Creatinine Ratio 14.5 (10-20); Calcium 8.4 mg/dl (8.6-10.3); Creatinine Clr Calc Pharmacy 100.7 ml/min; Est GFR (African American) 100.9 ml/min; Est GFR (Non-African American) 87.1 ml/min; Magnesium 1.9 mg/dl (1.7-2.4); Potassium 3.8 mmol/L (3.5-5.1)
[2023-02-14 08:06] LABS: Estimated Average Glucose 126 mg/dl
[2023-02-14] MEDS: INSULIN ASPART PER UNIT CHARGE SC SCH ×4 (09:16→20:09)
--- NOTE | 2023-02-14 09:21 | Pharmacy Report ---
Pharmacy PK ABX Note - Date of Service February 14, 2023 - Assessment and Plan Assessment 57 year old F receiving Vancomycin for treatment of Left leg wound (non- draining), and sepsis. Also with UTI. Blood and Urine cultures pending. Day #2 of antimicrobial therapy. Plan Vancomycin * Loading dose: 2000 mg IV x 1 given yesterday evening * Maintenance dose: 1000 mg IV every 12 hours. * Since with BMI greater than 35 kg/m2, utilized ~10 mg/kg for Vancomycin dose to prevent dose accumulation and elevated trough level. * Regimen is predicted to achieve target AUC/BISMARK of 400-600 mg/L.hr * Trough level ordered for: 02/15/23 @ 11:00 before noon dose. Pharmacy will continue to follow and will adjust dose/frequency as necessary. Thank you. Pharmacy has transitioned to AUC monitoring for vancomycin. AUC/BISMARK is the preferred PK/PD target and is associated with decreased risk of nephrotoxicity compared to traditional trough targets. Patient is also receiving Zosyn 4.5 gm IV Q8h. Dosed appropriately.
[2023-02-14] MEDS: ENOXAPARIN INJ 40 MG/0.4 ML SYR SQ SCH (09:23)
--- NOTE | 2023-02-14 10:03 | Hospitalist Progress Note ---
Date of Service February 14, 2023 Assessment & Plan (1) Sepsis: Plan: 57-year-old female presents with left lower extremity wound Reported she sustained a gash about 2 weeks ago that has not healed. Then developed chills, subjective fever, chills, nausea, diarrhea over the past 4 days Did not meet SIRS criteria on admission Only had tachycardia. However, with elevated lactate of 4 and wound infection, Sepsis is possible Left leg wound Lactate resolved with IVF Continue IV vanc and zosyn for now Denied urinary symptoms Follow up urine culture and blood cultures Diabetes mellitus HbA1c was 6.6 in 10/2021 HbA1c is 6 this admission (02/14/23). Well controlled Takes victoza Monitor BG and ISS per protocol COPD Continue inhalers Depression/ anxiety Fibromyalgia Continue Bupropion and Cymbalta Essential tremors Continue home propranolol Hypothyroidism on Synthyroid Hyperlipidemia on Zetia and statin DVT prophylaxis Lovenox Disposition med/telemetry Full code I spent a total of 50 minutes coordinating, documenting and providing care for this patient excluding time spent in performance of separately billed services Admission and Anticipated Discharge Date Admission Date: February 13, 2023 Subjective Patient seen and examined Reports feeling a bit better Still has pain over left leg wound No fever today. Reports some chills Nausea has resolved Reported one episode of diarrhea this morning Denied headache, dizziness Has chronic tremors (generalized) Denied chest pain, SOB, cough Denied dysuria, freq, urgency, hematuria Physical Exam Constitutional: + well hydrated; no acute distress Eyes: PERRL, conjunctivae normal, anicteric sclerae ENMT: external ear and nose normal, oropharynx normal Respiratory: normal respiratory effort, lungs clear to auscultation Cardiovascular: Rate/Rhythm: regular rate and regular rhythm S1 S2 Gastrointestinal (Abdomen): normal bowel sounds, soft, nontender, no hepatosplenomegaly Musculoskeletal: Wound on anterior left leg, stained dressing, tenderness around wound Neurologic: PERRL, EOMI, accommodation nl, no face palsy, no dysarthria +tremors Psychiatric: A+Ox3, euthymic affect Results & Data Results & Data Vital Signs (Past 12 Hours) Vital Signs Temp Pulse Pulse Pulse Resp BP Pulse Ox 02/14/23 07:45 02/14/23 07:38 36.7 C 77 18 133/82 93 02/14/23 07:00 67 02/14/23 03:53 36.7 C 58 L 18 115/71 94 02/14/23 00:00 98 H 02/13/23 23:18 36.8 C 80 20 128/77 95 O2 Del Method 02/14/23 07:45 Room Air 02/14/23 07:38 Room Air 02/14/23 07:00 02/14/23 03:53 Room Air 02/14/23 00:00 02/13/23 23:18 Room Air Laboratory Results Abnormal lab results 02/13/23 02/13/23 02/13/23 Range/Units 16:14 16:24 16:24 RBC 5.88 H (4.20-5.40) M/uL Hgb 16.2 H (12.0-16.0) g/dl Hct 49.8 H (37.0-47.0) % RDW Std Deviation 48.4 H (36.4-46.3) fL RDW Coeff of Stalin 16.2 H (11.5-14.5) % Plt Count 424 H (130-400) K/uL MPV 9.3 L (9.4-12.4) fL Neut # (Auto) 8.54 H (1.40-6.50) K/uL Chloride (98-107) mmol/L Anion Gap (3-11) BUN/Creatinine Ratio (10-20) Glucose (70-99(Fasting)) mg/dl POC Glucose (70-99) mg/dl Hemoglobin A1c (4.5-5.6) % Lactate 4.0 H* (0.4-2.0) mmol/L Calcium (8.6-10.3) mg/dl Alkaline Phosphatase (34-104) U/L Total Protein (6.0-8.3) gm/dl Globulin (2.5-4.0) gm/dl Urine Appearance Cloudy A (Clear) Urine Protein 3+ H (Negative) Urine Ketones Trace H (Negative) Urine Blood Trace-intact H (Negative) Urine Bilirubin 2+ H (Negative) Urine WBC 5-10 H (0-5) /hpf Ur Epithelial Cells >30 H (0-5) /lpf Urine Bacteria 2+ H (Negative) Stl C. diff Tox B Gene (Neg) 02/13/23 02/13/23 02/14/23 Range/Units 16:24 21:18 01:44 RBC (4.20-5.40) M/uL Hgb (12.0-16.0) g/dl Hct (37.0-47.0) % RDW Std Deviation 48.1 H (36.4-46.3) fL RDW Coeff of Stalin 15.7 H (11.5-14.5) % Plt Count (130-400) K/uL MPV 9.1 L (9.4-12.4) fL Neut # (Auto) 6.96 H (1.40-6.50) K/uL Chloride (98-107) mmol/L Anion Gap 13 H (3-11) BUN/Creatinine Ratio 9.6 L (10-20) Glucose 118 H (70-99(Fasting)) mg/dl POC Glucose (70-99) mg/dl Hemoglobin A1c (4.5-5.6) % Lactate (0.4-2.0) mmol/L Calcium (8.6-10.3) mg/dl Alkaline Phosphatase 145 H (34-104) U/L Total Protein 9.4 H (6.0-8.3) gm/dl Globulin 4.7 H (2.5-4.0) gm/dl Urine Appearance (Clear) Urine Protein (Negative) Urine Ketones (Negative) Urine Blood (Negative) Urine Bilirubin (Negative) Urine WBC (0-5) /hpf Ur Epithelial Cells (0-5) /lpf Urine Bacteria (Negative) Stl C. diff Tox B Gene Positive Cdiff Gene H (Neg) 02/14/23 02/14/23 02/14/23 Range/Units 06:21 06:21 06:21 RBC (4.20-5.40) M/uL Hgb (12.0-16.0) g/dl Hct (37.0-47.0) % RDW Std Deviation 49.6 H (36.4-46.3) fL RDW Coeff of Stalin 16.0 H (11.5-14.5) % Plt Count (130-400) K/uL MPV 9.3 L (9.4-12.4) fL Neut # (Auto) (1.40-6.50) K/uL Chloride 111 H (98-107) mmol/L Anion Gap (3-11) BUN/Creatinine Ratio (10-20) Glucose 101 H (70-99(Fasting)) mg/dl POC Glucose (70-99) mg/dl Hemoglobin A1c 6.0 H (4.5-5.6) % Lactate (0.4-2.0) mmol/L Calcium 8.4 L (8.6-10.3) mg/dl Alkaline Phosphatase (34-104) U/L Total Protein (6.0-8.3) gm/dl Globulin (2.5-4.0) gm/dl Urine Appearance (Clear) Urine Protein (Negative) Urine Ketones (Negative) Urine Blood (Negative) Urine Bilirubin (Negative) Urine WBC (0-5) /hpf Ur Epithelial Cells (0-5) /lpf Urine Bacteria (Negative) Stl C. diff Tox B Gene (Neg) 02/14/23 Range/Units 07:36 RBC (4.20-5.40) M/uL Hgb (12.0-16.0) g/dl Hct (37.0-47.0) % RDW Std Deviation (36.4-46.3) fL RDW Coeff of Stalin (11.5-14.5) % Plt Count (130-400) K/uL MPV (9.4-12.4) fL Neut # (Auto) (1.40-6.50) K/uL Chloride (98-107) mmol/L Anion Gap (3-11) BUN/Creatinine Ratio (10-20) Glucose (70-99(Fasting)) mg/dl POC Glucose 105 H (70-99) mg/dl Hemoglobin A1c (4.5-5.6) % Lactate (0.4-2.0) mmol/L Calcium (8.6-10.3) mg/dl Alkaline Phosphatase (34-104) U/L Total Protein (6.0-8.3) gm/dl Globulin (2.5-4.0) gm/dl Urine Appearance (Clear) Urine Protein (Negative) Urine Ketones (Negative) Urine Blood (Negative) Urine Bilirubin (Negative) Urine WBC (0-5) /hpf Ur Epithelial Cells (0-5) /lpf Urine Bacteria (Negative) Stl C. diff Tox B Gene (Neg) (1) Sepsis Sepsis acute organ dysfunction status: unspecified Sepsis type: sepsis due to unspecified organism Qualified Code(s): A41.9 - Sepsis, unspecified organism
[2023-02-14] MEDS: MAGNESIUM OXIDE 400 MG TAB PO SCH (20:23)
[2023-02-15] MEDS: oxyCODONE HCL IR 5 MG TAB (IMMEDIATE RELEASE) PO PRN ×3 (00:04→21:19)
[2023-02-15] MEDS: VANCOMYCIN HCL 1,000 MG in SODIUM CHLORIDE 0.9% 250 ML IV SCH (00:08)
[2023-02-15] MEDS: PIPERACILLIN/TAZOBACTAM 4.5 GM in DEXTROSE 5% 100 ML IV SCH (05:20)
[2023-02-15] MEDS: LEVOTHYROXINE SODIUM 75 MCG TABLET PO SCH (05:20)
[2023-02-15 07:58] LABS: Hematocrit (blood only) 36.6 % (37.0-47.0); Hemoglobin 11.6 g/dl (12.0-16.0); Mean Corpuscular Hgb Conc 31.7 g/dL (32.0-36.0); Mean Corpuscular Volume 85.3 fL (80.0-100.0); Mean Platelet Volume 9.6 fL (9.4-12.4); Platelet Count 272 K/uL (130-400); RDW Coefficient of Variation 16.2 % (11.5-14.5); RDW Standard Deviation 50.6 fL (36.4-46.3); Red Blood Count 4.29 M/uL (4.20-5.40); White Blood Count 7.35 K/ul (4.8-10.8)
[2023-02-15 08:14] LABS: BUN Creatinine Ratio 9.5 (10-20); Calcium 8.7 mg/dl (8.6-10.3); Creatinine Clr Calc Pharmacy 91.3 ml/min; Est GFR (African American) 89.4 ml/min; Est GFR (Non-African American) 77.2 ml/min; Potassium 3.7 mmol/L (3.5-5.1)
[2023-02-15] MEDS: PROPRANOLOL HCL 20 MG TAB PO SCH ×2 (08:53→21:23)
[2023-02-15] MEDS: EZETIMIBE 10 MG TABLET PO SCH (08:53)
[2023-02-15] MEDS: DULoxetine HCL 60 MG CAP PO SCH (08:54)
[2023-02-15] MEDS: ATORVASTATIN 40 MG TAB PO SCH (08:54)
[2023-02-15] MEDS: buPROPion SR 150 MG TABCR PO SCH ×2 (08:54→21:26)
[2023-02-15] MEDS: ASPIRIN 81 MG ECTAB PO SCH (08:54)
[2023-02-15] MEDS: ENOXAPARIN INJ 40 MG/0.4 ML SYR SQ SCH (08:55)
[2023-02-15] MEDS: UMECLIDINIUM/VILANTEROL 62.5/25MCG 7 PUFFS/INHALER INH SCH (08:55)
[2023-02-15] MEDS: PANTOprazole 40 MG TAB PO SCH ×2 (08:55→21:22)
[2023-02-15] MEDS: INSULIN ASPART PER UNIT CHARGE SC SCH ×4 (08:56→21:21)
--- NOTE | 2023-02-15 10:30 | Hospitalist Progress Note ---
Date of Service February 15, 2023 Assessment & Plan (1) Sepsis: Plan: 57-year-old female presents with left lower extremity wound Reported she sustained a gash about 2 weeks ago that has not healed. Then developed chills, subjective fever, chills, nausea, diarrhea over the past 4 days Did not meet SIRS criteria on admission Only had tachycardia. However, with elevated lactate of 4 and wound infection, Sepsis is possible Left leg wound Lactate resolved with IVF Currently on IV vanc and zosyn Deescalate antibiotics to ceftriaxone and doxycycline Denied urinary symptoms Urine and blood cultures negative so far Will need follow up with wound clinic Diabetes mellitus HbA1c was 6.6 in 10/2021 HbA1c is 6 this admission (02/14/23). Well controlled Takes victoza Monitor BG and ISS per protocol COPD Continue inhalers Depression/ anxiety Fibromyalgia Continue Bupropion and Cymbalta Essential tremors Continue home propranolol Hypothyroidism on Synthyroid Hyperlipidemia on Zetia and statin DVT prophylaxis Lovenox Disposition med/telemetry Full code Get PT/OT eval I spent a total of 45 minutes coordinating, documenting and providing care for this patient excluding time spent in performance of separately billed services Admission and Anticipated Discharge Date Admission Date: February 13, 2023 Subjective Patient seen and examined Reports nausea today. No vomiting Reports left leg wound pain Still has pain over left leg wound No fever, chills, abd pain Denied headache, dizziness Has chronic tremors (generalized) Denied chest pain, SOB, cough Denied dysuria, freq, urgency, hematuria Physical Exam Constitutional: + well hydrated; no acute distress Eyes: PERRL, conjunctivae normal, anicteric sclerae ENMT: external ear and nose normal, oropharynx normal Respiratory: normal respiratory effort, lungs clear to auscultation Cardiovascular: Rate/Rhythm: regular rate and regular rhythm S1 S2 Gastrointestinal (Abdomen): normal bowel sounds, soft, nontender, no hepatosplenomegaly Musculoskeletal: Left leg wound with surrounding erythema and tenderness. No pedal edema Neurologic: PERRL, EOMI, accommodation nl, no face palsy, no dysarthria Psychiatric: A+Ox3, euthymic affect Results & Data Results & Data Vital Signs (Past 12 Hours) Vital Signs Temp Pulse Pulse Resp BP Pulse Ox O2 Del Method 02/15/23 07:44 36.6 C 71 18 127/70 95 Room Air 02/15/23 04:23 36.8 C 82 20 142/68 H 95 Room Air 02/15/23 00:00 67 02/15/23 00:01 36.8 C 72 20 144/75 H 96 Room Air Laboratory Results Abnormal lab results 02/14/23 02/15/23 02/15/23 Range/Units 17:17 07:09 07:09 Hgb 11.6 L (12.0-16.0) g/dl Hct 36.6 L (37.0-47.0) % MCHC 31.7 L (32.0-36.0) g/dL RDW Std Deviation 50.6 H (36.4-46.3) fL RDW Coeff of Stalin 16.2 H (11.5-14.5) % Chloride 110 H (98-107) mmol/L BUN/Creatinine Ratio 9.5 L (10-20) Glucose 103 H (70-99(Fasting)) mg/dl POC Glucose 101 H (70-99) mg/dl 02/15/23 Range/Units 07:43 Hgb (12.0-16.0) g/dl Hct (37.0-47.0) % MCHC (32.0-36.0) g/dL RDW Std Deviation (36.4-46.3) fL RDW Coeff of Stalin (11.5-14.5) % Chloride (98-107) mmol/L BUN/Creatinine Ratio (10-20) Glucose (70-99(Fasting)) mg/dl POC Glucose 115 H (70-99) mg/dl (1) Sepsis Sepsis acute organ dysfunction status: unspecified Sepsis type: sepsis due to unspecified organism Qualified Code(s): A41.9 - Sepsis, unspecified organism
[2023-02-15] MEDS ORDERED: VANCOMYCIN LEVEL SCH (11:00)
[2023-02-15] MEDS: ACETAMINOPHEN 500 MG TAB PO PRN (12:20)
[2023-02-15] MEDS: cefTRIAXone SODIUM 2,000 MG in DEXTROSE 5% 50 ML IV SCH (13:53)
[2023-02-15] MEDS: DOXYCYCLINE HYCLATE 100 MG CAP PO SCH (17:48)
--- NOTE | 2023-02-15 19:54 | Electrocardiogram Report ---
Test Reason : Blood Pressure : / mmHG Vent. Rate : 127 BPM Atrial Rate : 127 BPM P-R Int : 164 ms QRS Dur : 080 ms QT Int : 304 ms P-R-T Axes : 075 044 073 degrees QTc Int : 442 ms Sinus tachycardia Biatrial enlargement Septal infarct , age undetermined Abnormal ECG When compared with ECG of 10-SEP-2019 06:47, Vent. rate has increased BY 43 BPM Septal infarct is now Present Confirmed by Alec Cervantes ([id number]) on 02/15/2023 7:53:47 PM Referred By: REFERRED SELF Confirmed By:Alec Cervantes
[2023-02-15] MEDS: MAGNESIUM OXIDE 400 MG TAB PO SCH (21:25)
[2023-02-16] MEDS: LEVOTHYROXINE SODIUM 75 MCG TABLET PO SCH (05:55)
[2023-02-16 07:11] LABS: Hematocrit (blood only) 36.7 % (37.0-47.0); Hemoglobin 11.7 g/dl (12.0-16.0); Mean Corpuscular Hemoglobin 27.2 pg (25.0-34.0); Mean Corpuscular Hgb Conc 31.9 g/dL (32.0-36.0); Mean Corpuscular Volume 85.3 fL (80.0-100.0); Mean Platelet Volume 9.8 fL (9.4-12.4); Platelet Count 270 K/uL (130-400); RDW Coefficient of Variation 16.2 % (11.5-14.5); RDW Standard Deviation 50.2 fL (36.4-46.3); White Blood Count 6.76 K/ul (4.8-10.8)
[2023-02-16] MEDS: ACETAMINOPHEN 500 MG TAB PO PRN (07:36)
[2023-02-16 07:41] LABS: BUN Creatinine Ratio 8.5 (10-20); Creatinine Clr Calc Pharmacy 93.5 ml/min; Est GFR (African American) 92.1 ml/min; Est GFR (Non-African American) 79.4 ml/min; Potassium 3.9 mmol/L (3.5-5.1)
[2023-02-16] MEDS: DOXYCYCLINE HYCLATE 100 MG CAP PO SCH (08:25)
[2023-02-16] MEDS: INSULIN ASPART PER UNIT CHARGE SC SCH ×2 (09:02→13:03)
[2023-02-16] MEDS: PROPRANOLOL HCL 20 MG TAB PO SCH (09:04)
[2023-02-16] MEDS: buPROPion SR 150 MG TABCR PO SCH (09:04)
[2023-02-16] MEDS: PANTOprazole 40 MG TAB PO SCH (09:05)
[2023-02-16] MEDS: ATORVASTATIN 40 MG TAB PO SCH (09:05)
[2023-02-16] MEDS: ASPIRIN 81 MG ECTAB PO SCH (09:05)
[2023-02-16] MEDS: EZETIMIBE 10 MG TABLET PO SCH (09:05)
[2023-02-16] MEDS: DULoxetine HCL 60 MG CAP PO SCH (09:05)
[2023-02-16] MEDS: UMECLIDINIUM/VILANTEROL 62.5/25MCG 7 PUFFS/INHALER INH SCH (09:06)
[2023-02-16] MEDS: ENOXAPARIN INJ 40 MG/0.4 ML SYR SQ SCH (09:06)
[2023-02-16] MEDS: oxyCODONE HCL IR 5 MG TAB (IMMEDIATE RELEASE) PO PRN ×2 (10:32→16:24)
[2023-02-16] MEDS: cefTRIAXone SODIUM 2,000 MG in DEXTROSE 5% 50 ML IV SCH (13:51)
--- NOTE | 2023-02-16 14:46 | Discharge Summary ---
Date of Service February 16, 2023 Admission HPI Per Admitting Provider 57-year-old female with past medical significant for type 2 diabetes, hypothyroidism, COPD, morbid obesity, GERD, fibromyalgia, essential tremor, complicated migraine, depression and anxiety presents with left lower extremity wound. Patient states couple of weeks ago she injured her left leg while getting down the porch. He does not healing. Lately developed lot of pain and not able to put the weight on the leg and this reason she came to the ER today. No drainage seen. No fevers. No chest pain or shortness of breath. Today she developed nausea and diarrhea had 4 episodes of diarrhea today. No abdominal pain. No headache. No blurred visions or earache runny nose or sore throat. And resting comfortably and hemodynamic stable Admission Exam Per Admitting Provider General- Not in distress Head- atraumatic Eyes- PERRL. ENT- oropharynx clear Neck- supple, no JVD. Lungs- clear to auscultation and percussion, no added sounds Heart- regular rate and rhythm; no murmur, no gallop. Abdomen- normal bowel sounds, soft, nontender, no distension Extremities- no pretibial edema, wound seen on left goins with blackish discoloration , doesn't seem deep. Neuro- alert, oriented x 3; PERRL, no facial palsy; no dysarthria; moves extremities. Skin- warm & dry Principal Diagnosis Left leg wound infection Discharge Exam Constitutional + well hydrated; no acute distress Eyes PERRL, conjunctivae normal, anicteric sclerae ENMT external ear and nose normal, oropharynx normal Respiratory normal respiratory effort, lungs clear to auscultation Cardiovascular Rate/Rhythm: regular rate and regular rhythm S1 S2 Gastrointestinal (Abdomen) normal bowel sounds, soft, nontender, no hepatosplenomegaly Musculoskeletal Left leg wound with clean dressing Neurologic PERRL, EOMI, accommodation nl, no face palsy, no dysarthria Chronic tremor Psychiatric A+Ox3, euthymic affect Discharge Data Allergies Allergy/AdvReac Type Severity Reaction Status Date / Time No Known Allergies Allergy Unknown Verified 10/22/19 11:18 Consultations 02/13/23 18:18 ED Decision to Admit Stat Hospital Course (1) Sepsis: 57-year-old female presents with left lower extremity wound Reported she sustained a gash about 2 weeks ago that has not healed. Then developed chills, subjective fever, chills, nausea, diarrhea over the past 4 days Did not meet SIRS criteria on admission Only had tachycardia. However, with elevated lactate of 4 and wound infection, Sepsis is possible Left leg wound Lactate resolved with IVF Was initially treated with IV vanc and zosyn on admission and subsequently deescalated antibiotics to ceftriaxone and doxycycline Patient denied urinary symptoms UA was not suggestive of UTI (negative nitrite/leuk esterase. 5-10 WBC) Urine culture grew staph spp + mixed shashi. Hence contaminated Patient does not have urinary tract infection Patient feeling better today. Presenting symptoms are resolved Left wound pain is controlled Discharged with wound care instructions. Discharged on po augmentin and doxycycline to complete 7 days of treatment Diabetes mellitus HbA1c was 6.6 in 10/2021 HbA1c is 6 this admission (02/14/23). Well controlled Takes victoza COPD Continue inhalers Depression/ anxiety Fibromyalgia Continue Bupropion and Cymbalta Essential tremors Continue home propranolol Hypothyroidism on Synthyroid Hyperlipidemia on Zetia and statin Total Time Total Time Spent Total Time Spent (In Minutes): 35 Total Time Includes: Examination of the Patient, Discharge Planning and Medication Reconciliation Discharge Plan Discharge Items Patient Disposition: Home - Self-Care Reason For Visit: INFECTION Discharge Diagnosis: Left leg wound infection Activity: Resume your previous activity Non-emergency contact: Primary Care Provider Call non-emergency contact if: you have any medication questions Follow-up/Referrals: [facility] [Other] - 03/05/23 9:00 am ([address], [place] [address] ) Joaquín Potter MD [Primary Care Provider] - (Date & Time 02/22/2023 12:20 PM Provider Joaquín Potter MD Department Family [facility] ) Diet: Carb Consistent or DM2 and Heart Healthy Addtl Attending Provider Instructions: Ms Langley. You came to the hospital after left leg wound. You were managed for infection You are being discharged on antibiotics to complete treatment. Please continue to dress the wound as instructed by Wound care nurse Wash hands prior to changing dressing. Clean left leg wound with saline and wound wash Cover wound with Aquacel Ag that is cut larger than wound Secure with Optifoam Change every 3 days or if drainage on covering dressing exceeds 50% [facility] on 03/05/23 at 9am. Please ensure follow up with your Primary Doctor. It was a pleasure taking care of you. Pending Studies at Discharge: No Stand-Alone Forms: My [facility] [address], Smoking Cessation Medications and DC Order Prescriptions: New doxycycline hyclate 100 mg Capsule 100 mg PO BID@0730,1800 4 Days Qty: 9 0RF acetaminophen [Tylenol Extra Strength] 500 mg Tablet 1,000 mg PO TID PRN (Reason: Mild to moderate pain) Qty: 60 0RF oxycodone 5 mg Tablet 5 mg PO TID PRN (Reason: severe pain (scale score 7-10)) Qty: 12 0RF amoxicillin-pot clavulanate 875-125 mg tablet 1 tab PO BID Qty: 9 0RF Continued omeprazole 40 mg capsule,delayed release(DR/EC) 40 mg PO BID levothyroxine 75 mcg tablet 75 mcg PO QAM dicyclomine 20 mg tablet 20 mg PO QID PRN (Reason: Abdominal Pain) duloxetine [Cymbalta] 60 mg Capsule,Delayed Release(Dr/Ec) 60 mg PO QAM Victoza 2-Sonny 0.6 mg/0.1 mL (18 mg/3 mL) Pen Injector 1.6 mg subcut QAM Rx Instructions: ONE INJECTION DAILY magnesium oxide 400 mg magnesium capsule 400 mg PO HS meclizine 25 mg tablet 25 mg PO TID PRN (Reason: Dizziness) ammonium lactate 12 % cream 1 applic TOPICAL BID PRN (Reason: Dry Skin) albuterol sulfate 90 mcg/actuation HFA aerosol inhaler 2 puff INHALATION Q4H PRN (Reason: Wheezing) Bevespi Aerosphere 9-4.8 mcg HFA aerosol inhaler 2 puff INHALATION BID atorvastatin 40 mg Tablet 40 mg PO QAM Qty: 30 1RF aspirin 81 mg Tablet,Delayed Release (Dr/Ec) 81 mg PO QAM Qty: 90 1RF riboflavin (vitamin B2) 400 mg tablet 400 mg PO DAILY PRN (Reason: headache) Qty: 30 0RF ondansetron 4 mg tablet,disintegrating 4 mg PO Q6H PRN (Reason: nausea and vomiting) Qty: 14 0RF bupropion HCl 150 mg tablet sustained-release 12 hr 150 mg PO DIRECTED Rx Instructions: per pharmacy they have bid instead of daily propranolol 40 mg tablet 40 mg PO BID ezetimibe [Zetia] 10 mg tablet 10 mg PO QAM ergocalciferol (vitamin D2) 1,250 mcg (50,000 unit) capsule 1,250 mcg PO WK Discharge Orders: Discharge Order (Routine); Ordered 02/16/23 Ordered By: Marina Morrison/Other Patient Handouts: High Blood Sugar (Hyperglycemia), Hypoglycemia (Low Blood Sugar), Managing Type 2 Diabetes, Diabetes: Meal Planning Admission Data Admit Date/Time: 02/13/23 19:18 Attending Provider: Marina Sargent I. Admit Provider: Nedra Cage Primary Care Provider: Joaquín Potter Other Providers: Nedra Cage
== END 2023-02-16 17:22 | disposition home or self-care (01) | DRG 872 ==
LOC: ED 15:44 → 2N 19:18 → SUATTDRO 19:18 → 2N 20:13 → 2W 02-15 18:36